=== PATIENT | male | born 1940 | race Caucasian/White ===

== ENCOUNTER 2024-12-29 09:07 | Inpatient (IN) | payer OTHER ==
[~2024-12-29] VITALS: Ht 165.1 cm; Wt 109.9 kg
[2024-12-29] VITALS (13 sets, daily range): BP systolic 106–132; BP diastolic 35–58; PULSE 70–109; RESP 14–21; TEMP 98.2–98.9; O2SAT 92–96
--- NOTE | 2024-12-29 10:20 | ED.PDOC ---
SOB-HPI HPI Comments 84 y/o M, BIBA, with PMHx of COPD, HTN, and DM II presents to the ED for CC of shortness of breath. EMS reports, patient is coming from home where he complains of shortness of breath with associated non-productive cough onset, last night (12/28/24). EMS states, patient is on 2L O2 via NC at home PRN. Upon arrival to ED, patient complains of additional symptoms of bilateral leg swelling; endorses currently being on blood thinners. Patient denies chest pain, palpitations, fever, chills, weakness, or fatigue. No others symptoms or modifying factors present at this time. Chief Complaint: Shortness of Breath Time Seen by MD: 09:50 Primary Care Provider: CHESTER Amador notes: Nurses Notes, Medications, Allergies Information Source: Patient Mode of Arrival: EMS Severity: Moderate Timing: Hours Duration: Since onset Context: At Rest PE Risk Factors: None History of: COPD Prehospital treatment: None Modifying Factors: Nothing Associated Signs and Symptoms: Cough, Leg Swelling If cough with SOB: Non-Productive Past Medical History PAST MEDICAL HISTORY: COPD, DM, HTN Surgical History: Denies all surgeries Family History Family History: Unknown Social History Smoker: Cigarettes Alcohol: Denies ETOH Use Drugs: Denies Drug Use Lives In: Home Constitutional: denies: chills, diaphoresis, fatigue, fever, malaise, sweats, weakness, others EENTM: denies: blurred vision, double vision, ear bleeding, ear discharge, ear drainage, ear pain, ear ringing, eye pain, eye redness, hearing loss, mouth pain, mouth swelling, nasal discharge, nose bleeding, nose congestion, nose pain, photophobia, tearing, throat pain, throat swelling, voice changes, others Respiratory: reports: cough, shortness of breath; denies: hemoptysis, orthopnea, SOB at rest, SOB with excertion, stridor, wheezing, others Cardiovascular: denies: chest pain, dizzy spells, diaphoresis, Dyspnea on exertion, edema, irregular heart beat, left arm pain, lightheadedness, palpitations, PND, syncope, others Gastrointestinal: denies: abdomen distended, abdominal pain, blood streaked bowels, constipated, diarrhea, dysphagia, difficulty swallowing, hematemesis, melena, nausea, poor appetite, poor fluid intake, rectal bleeding, rectal pain, vomiting, others Genitourinary: denies: burning, dysuria, flank pain, frequency, hematuria, incontinence, penile discharge, penile sore, pain, testicle pain, testicle swelling, urgency, others Neurological: denies: dizziness, fainting, headache, left sided numbness, left sided weakness, numbness, paresthesia, pre-existing deficit, right sided numbness, right sided weakness, seizure, speech problems, tingling, tremors, weakness, others Musculoskeletal: reports: others (BILATERAL LEG SWELLING); denies: back pain, gout, joint pain, joint swelling, muscle pain, muscle stiffness, neck pain Integumetry: denies: bruises, change in color, change in hair/nails, dryness, laceration, lesions, lumps, rash, wounds, others Allergic/Immunocompromised: denies: Difficulty Healing, Frequent Infections, Hives, Itching, others Hematologic/Lymphatic: denies: anemia, blood clots, easy bleeding, easy bruising, swollen glands, others Endocrine: denies: excessive hunger, excessive sweating, excessive thirst, excessive urination, flushing, intolerance to cold, intolerance to heat, unexplained weight gain, unexplained weight loss, others Psychiatric: denies: anxiety, bipolar disorder, depression, hopeless, panic disorder, schizophrenia, sleepless, suicidal, others All Other Systems: Reviewed and Negative Physical Exam General Appearance: Moderate Distress, Obese HEENT: Normal ENT Inspection, PERRL/EOMI Neck: Full Range of Motion, Non-Tender, Normal, Normal Inspection Respiratory: Chest Non-Tender, Lungs Clear, No Accessory Muscle Use, No Respiratory Distress, Normal Breath Sounds Cardiovascular: No Edema, No JVD, No Murmur, No Gallop, Normal Peripheral Pulses, Regular Rate/Rhythm Breast Exam: Deferred Gastrointestinal: No Organomegaly, Non Tender, No Pulsatile Mass, Normal Bowel Sounds, Soft, Other (Morbid obesity) Genitalia: Deferred Pelvic: Deferred Rectal: Deferred Extremities: Decreased range of motion, Inflammation, Leg edema, Pedal edema, Swelling, Tender Neurologic: Alert, 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 Was a procedure done?: No Differential Dx Differential Diagnosis: CHF, COPD, Hypertension, Hyponatremia, Myocardial infarction, Pneumonia, URI X-Ray, Labs, Meds, VS Vital Signs Date Time Temp Pulse Resp B/P (MAP) Pulse Ox O2 Delivery O2 Flow Rate FiO2 12/29/24 11:05 70 16 92 Nasal Cannula* 4 36 12/29/24 10:43 98.0 92 17 107/80 (89) 93 98.0 12/29/24 10:43 92 17 93 Nasal Cannula 2.0 12/29/24 09:15 93 Nasal Cannula* 2 28 12/29/24 09:15 98.0 98 20 105/43 (63) 93 98.0 12/29/24 09:15 94 Lab Test 12/29/24 10:50 Range/Units White Blood Count 11.5 H 4.4-10.8 10^3/uL Red Blood Count 2.41 L 4.5-5.90 10^6/uL Hemoglobin 6.6 *L 13.5-17.5 g/dL Hematocrit 20.8 L 41.0-53.0 % Mean Corpuscular Volume 86.3 80.0-100.0 fL Mean Corpuscular Hemoglobin 27.2 L 28.0-32.0 pg Mean Corpuscular Hemoglobin Concent 31.6 L 32.0-36.0 g/dL Red Cell Distribution Width 15.8 H 11.8-14.3 % Platelet Count 312 140-450 10^3/uL Mean Platelet Volume 7.5 6.9-10.8 fL Neutrophils (%) (Auto) 87.1 H 37.0-80.0 % Lymphocytes (%) (Auto) 5.1 L 10.0-50.0 % Monocytes (%) (Auto) 6.3 0.0-12.0 % Eosinophils (%) (Auto) 0.2 0.0-7.0 % Basophils (%) (Auto) 1.3 0.0-2.0 % Neutrophils # (Auto) 10.1 H 1.6-8.6 10 ^3/uL Lymphocytes # (Auto) 0.6 0.4-5.4 10 ^3/uL Monocytes # (Auto) 0.7 0-1.3 10 ^3/uL Eosinophils # (Auto) 0 0-0.8 10 ^3/uL Basophils # (Auto) 0.1 0-0.2 10 ^3/uL Nucleated Red Blood Cells 0.1 % Sodium Level 143 136-145 mmol/L Potassium Level 3.6 3.5-5.1 mmol/L Chloride Level 104 98-107 mmol/L Carbon Dioxide Level 31 20-31 mmol/L Anion Gap 8 5-15 Blood Urea Nitrogen 69 H 9-23 mg/dL Creatinine 1.75 H 0.700-1.30 mg/dL Glomerular Filtration Rate Calc 38 >90 mL/min BUN/Creatinine Ratio 39.4 H 10.0-20.0 Serum Glucose 153 H 74-106 mg/dL Calcium Level 9.7 8.7-10.4 mg/dL Magnesium Level 1.9 1.6-2.6 mg/dL Total Bilirubin 0.2 0.2-1.0 mg/dL Aspartate Amino Transferase (AST) 12 L 13-40 U/L Alanine Aminotransferase (ALT) 11 7-40 U/L Alkaline Phosphatase 79 46-116 U/L Troponin I High Sensitivity 32 </=54 ng/L B-Type Natriuretic Peptide 85.03 0-100 pg/mL Total Protein 6.5 5.7-8.2 g/dL Albumin 4.3 3.2-4.8 g/dL Thyroid Stimulating Hormone (TSH) Pending Current Medications Medications (Trade) Dose Ordered Sig/Milad Route Start Time Stop Time Status Last Admin Sodium Chloride 1,000 ml @ 150 mls/hr Q6H40M ONCE IV 12/29/24 10:45 12/29/24 17:24 12/29/24 10:48 [place] [id number] Ph: [phone] DIAGNOSTIC IMAGING Diagnostic Imaging Report : [id number] Signed PATIENT: JORDAN CASTRO ACCT: [id number] UNIT: [id number] : 1940 LOC: ER ROOM / BED: / AGE / SEX: 84 / M ADM STATUS: REG ER SERVICE 1032 ORDERING PHYSICIAN: JEANNIE BARNEY MD PROCEDURE(s): CXR2 - CHEST TWO VIEWS ROUTINE REASON: sob ORDER NUMBER(s): [id number], ACCESSION NUMBER(s): [id number] Procedure: XY CHEST TWO VIEWS ROUTINE 12/29/2024 10:35 AM Indication: sob Comparison: None TECHNIQUE: XY CHEST TWO VIEWS ROUTINE FINDINGS: Medical devices: None. Cardiomediastinal: The heart is normal in size. Pulmonary vasculature is within normal limits. Atherosclerotic calcification of the aortic arch noted. Lungs: No lobar consolidation. Bronchial wall thickening noted in the bilateral mid and lower lung zones. The costophrenic angles are clear. No pneumothorax. Bones/soft tissues: No acute abnormality is noted. IMPRESSION: 1. Findings compatible bronchitis. No lobar consolidation. 2. Hyperaerated lungs suggestive of COPD. ATED BY: JENI SÁNCHEZ MD DICTATED DATE/TIME: 12/29/241127 SIGNED BY: JENI SÁNCHEZ MD SIGNED DATE/TIME: 12/29/241127 CC: X-Ray, Labs, Meds, VS Comment Course in the emergency department eventful patient came in complaining of shortness of breath The chest x-ray shows COPD with a mild exacerbation EKG shows normal sinus rhythm at 94 with a right bundle-branch block and prolonged good T interval [place] 19337 with 87% neutrophils H&H 6.6 and 20.8 and a blood sugar of 153 and a GFR of 38 BNP 85 urine pending Magnesium 1.9 Troponin 32 Patient will be transfused and admitted for further care Time of 1ST Reevaluation: 10:20 Reevaluation 1ST: Unchanged Time of 2ND Reevaluation: 12:40 Reevaluation 2ND: Unchanged Patient Education/Counseling: Diagnosis, Treatment, Prognosis Family Education/Counseling: Diagnosis, Treatment, Prognosis, No Family Present Departure 1 Departure Time of Disposition: 12:52 Impression: Primary Impression: Shortness of breath Additional Impressions: Anemia requiring transfusions CKD (chronic kidney disease) stage 3, GFR 30-59 ml/min Qualified Codes: N18.32 - Chronic kidney disease, stage 3b Diabetic nephropathy Qualified Codes: E11.21 - Type 2 diabetes mellitus with diabetic nephropathy Disposition: ADMITTED INPATIENT Condition: Serious Critical Care Note Critical Care Time?: No Stability Stability form required: Yes Unstable for transfer: Telemetry monitoring (Telemetry monitoring required), Requires medication (Requires Med for stabilization) Heart Score Heart Score: Heart Score Response (Comments) Value History N/A 0 EKG Repolarization Disturb 1 Age >65 2 Risk Factors >3 or Hx ASHD 2 Troponin Normal limit 0 Total 5 I personally scribed for JEANNIE BARNEY MD ([email or web address]) on 12/29/24 at 10:20. Electronically submitted by Samantha Carreon ([employer]). I personally scribed for JEANNIE BARNEY MD ([email or web address]) on 12/29/24 at 10:26. Electronically submitted by Samantha Carreon ([employer]). I personally scribed for JEANNIE BARNEY MD ([email or web address]) on 12/29/24 at 11:33. Electronically submitted by Samantha Carreon ([employer]). JEANNIE BARNEY MD Dec 29, 2024 10:20
[2024-12-29] MEDS: SODIUM CHLORIDE 0.9% 1,000 ML IV ONE (10:48)
[2024-12-29 11:10] LABS: Basophils # (auto) 0.1 10 ^3/uL (0-0.2); Eosinophils # (auto) 0 10 ^3/uL (0-0.8); Lymphocytes # (auto) 0.6 10 ^3/uL (0.4-5.4); Monocytes # (auto) 0.7 10 ^3/uL (0-1.3); Nucleated Red Blood Cells % 0.1 %
[2024-12-29 11:12] LABS: Basophils % (auto) 1.3 % (0.0-2.0); Eosinophils % (auto) 0.2 % (0.0-7.0); Hematocrit 20.8 % (41.0-53.0); Lymphocytes % (auto) 5.1 % (10.0-50.0); Mean Corpuscular Hemoglobin 27.2 pg (28.0-32.0); Mean Corpuscular Hgb Conc. 31.6 g/dL (32.0-36.0); Mean Corpuscular Volume 86.3 fL (80.0-100.0); Monocytes % (auto) 6.3 % (0.0-12.0); Neutrophils # (auto) 10.1 10 ^3/uL (1.6-8.6); Neutrophils % (auto) 87.1 % (37.0-80.0); Platelet Count (auto) 312 10^3/uL (140-450); Red Blood Cells 2.41 10^6/uL (4.5-5.90); Red Cell Distribution Width 15.8 % (11.8-14.3); White Blood Cell 11.5 10^3/uL (4.4-10.8)
[2024-12-29 11:15] LABS: Hemoglobin 6.6 g/dL (13.5-17.5)
[2024-12-29 11:21] LABS: Alanine Aminotransferase 11 U/L (7-40); Albumin 4.3 g/dL (3.2-4.8); Alkaline Phosphatase 79 U/L (46-116); Anion Gap 8 (5-15); Aspartate Aminotransferase 12 U/L (13-40); BUN/Creatinine Ratio 39.4 (10.0-20.0); Blood Urea Nitrogen 69 mg/dL (9-23); Calcium 9.7 mg/dL (8.7-10.4); Carbon Dioxide 31 mmol/L (20-31); Chloride 104 mmol/L (98-107); Glucose 153 mg/dL (74-106); Magnesium 1.9 mg/dL (1.6-2.6); Potassium 3.6 mmol/L (3.5-5.1); Sodium 143 mmol/L (136-145); Total Protein 6.5 g/dL (5.7-8.2)
[2024-12-29 11:22] LABS: Bilirubin, Total 0.2 mg/dL (0.2-1.0)
--- NOTE | 2024-12-29 11:30 | DVH ---
Procedure: XY CHEST TWO VIEWS ROUTINE 12/29/2024 10:35 AM Indication: sob Comparison: None TECHNIQUE: XY CHEST TWO VIEWS ROUTINE FINDINGS: Medical devices: None. Cardiomediastinal: The heart is normal in size. Pulmonary vasculature is within normal limits. Athero sclerotic calcification of the aortic arch noted. Lungs: No lobar consolidation. Bronchial wall thickening noted in the bilateral mid and lower lung zo saleem. The costophrenic angles are clear. No pneumothorax. Bones/soft tissues: No acute abnormality is noted. IMPRESSION: 1. Findings compatible bronchitis. No lobar consolidation. 2. Hyperaerated lungs suggestive of COPD.
[2024-12-29] MEDS ORDERED: DEXTROSE (50%) 50ML SYRG IV PRN (16:00)
[2024-12-29] MEDS ORDERED: MORPHINE SULFATE INJ 2 MG/ml SYRG IV PRN (16:00)
[2024-12-29] MEDS ORDERED: ACETAMINOPHEN 325 MG TAB PO PRN (16:00)
[2024-12-29] MEDS ORDERED: NITROGLYCERIN 0.4 MG SL TAB SL PRN (16:00)
[2024-12-29] MEDS ORDERED: ONDANSETRON HCL 4 MG/2 ML VIAL IV PRN (16:00)
[2024-12-29] MEDS ORDERED: HYDROcodone-ACET 5/325MG TAB PO PRN (16:00)
--- NOTE | 2024-12-29 16:23 | DVHHP2 ---
History of Present Illness Reason for Visit: Anemia requiring transfusions History of Present Illness The patient is a 84-year-old male with past medical history of COPD, DM, and hypertension who presented to [facility] ED with complaint of shortness of breaths. Patient reports symptoms progressively get worse with bilateral leg swelling, nonproductive cough, weakness, increased work of breathing, getting worse today that prompted this visit. Patient was seen and evaluated in the ED, laboratory data shows WBC 11.5, hemoglobin 6.6, hematocrit 20.8, platelets 312, sodium 143, potassium 3.6, BUN 69, creatinine 1.75, glucose 153, BNP 83.03, troponin 32, TSH 0.54. Chest x-ray finding compatible bronchitis, hyper-aerated lungs suggestive of COPD, no lobar consolidation. Patient was given 2 units of PRBC. On my assessment, patient denied chest pain, palpitations, no headache, dizziness, no diaphoresis, currently on oxygen, no nausea, no vomiting, no fever, no chills. Patient was admitted further evaluation and medical management. Past Medical History COPD, DM, HTN Past Surgical History Denies all surgeries Family History Reviewed, noncontributory to the management of this case. Past Social History The patient lives at home, smokes cigarettes, denies alcohol or illicit drugs abuse. Review of Systems Constitutional: Yes: Weakness; No: Fever, Chills, Sweats, Malaise, Other Eyes: No: Pain, Vision change, Conjunctivae inflammation, Eyelid inflammation, Other, Redness ENT: No: Ear pain, Ear discharge, Nose pain, Nose discharge, Nose congestion, Mouth pain, Mouth swelling, Throat pain, Throat swelling, Other Respiratory: Cough, Shortness of breath; No: Dry, SOB with excertion, Wheezing, Hemoptysis, Pleuritic Pain, Sputum, Wheezing, Other Cardiovascular: No: Chest Pain, Palpitations, Orthopnea, Paroxysmal Noc. Dyspnea, Edema, Lt Headedness, Other Gastrointestinal: No: Nausea, Vomiting, Abdominal Pain, Diarrhea, Constipation, Melena, Hematochezia, Other Genitourinary: No Dysuria, No Frequency, No Incontinence, No Hematuria, No Retention, No Other Musculoskeletal: other (Bilateral lower extremity swelling); No: neck pain, shoulder pain, arm pain, back pain, hand pain, leg pain, foot pain Skin: No: Rash, Lesions, Jaundice, Bruising, Other Neurological: No: Weakness, Numbness, Incoordination, Change in speech, Confusion, Seizures, Other Allergies: Coded Allergies: Penicillins (Verified Allergy, Severe, 12/29/24) Exam Vital Signs Vital Signs Date Time Temp Pulse Resp B/P (MAP) Pulse Ox O2 Delivery O2 Flow Rate FiO2 12/29/24 15:45 98.4 93 20 115/49 98.4 12/29/24 14:00 96 12/29/24 11:05 Nasal Cannula* 4 36 General Appearance: Alert, Oriented X3, Cooperative, No acute distress HEENT: Atraumatic, PERRLA, EOMI, Mucous membr. moist/pink Respiratory: Normal air movement, Other (Shortness of breaths) Cardiovascular: Regular rate, Normal S1, Normal S2, No murmurs Abdominal: Normal bowel sounds, Soft, No tenderness, No hepatospenomegaly, No masses Extremities: No clubbing, No cyanosis, No edema, Normal pulses, Other (Lower extremity swelling) Skin: No rashes, No breakdown, No significant lesion Neuro: Normal speech, Normal tone, Sensation intact, Cranial nerves 3-12 NL, Reflexes 2+, Other (Generalized weakness) Psych/Mental Status: Mental status NL Labs/Xrays Labs Test 12/29/24 10:50 Range/Units White Blood Count 11.5 H 4.4-10.8 10^3/uL Red Blood Count 2.41 L 4.5-5.90 10^6/uL Hemoglobin 6.6 *L 13.5-17.5 g/dL Hematocrit 20.8 L 41.0-53.0 % Mean Corpuscular Volume 86.3 80.0-100.0 fL Mean Corpuscular Hemoglobin 27.2 L 28.0-32.0 pg Mean Corpuscular Hemoglobin Concent 31.6 L 32.0-36.0 g/dL Red Cell Distribution Width 15.8 H 11.8-14.3 % Platelet Count 312 140-450 10^3/uL Mean Platelet Volume 7.5 6.9-10.8 fL Neutrophils (%) (Auto) 87.1 H 37.0-80.0 % Lymphocytes (%) (Auto) 5.1 L 10.0-50.0 % Monocytes (%) (Auto) 6.3 0.0-12.0 % Eosinophils (%) (Auto) 0.2 0.0-7.0 % Basophils (%) (Auto) 1.3 0.0-2.0 % Neutrophils # (Auto) 10.1 H 1.6-8.6 10 ^3/uL Lymphocytes # (Auto) 0.6 0.4-5.4 10 ^3/uL Monocytes # (Auto) 0.7 0-1.3 10 ^3/uL Eosinophils # (Auto) 0 0-0.8 10 ^3/uL Basophils # (Auto) 0.1 0-0.2 10 ^3/uL Nucleated Red Blood Cells 0.1 % Sodium Level 143 136-145 mmol/L Potassium Level 3.6 3.5-5.1 mmol/L Chloride Level 104 98-107 mmol/L Carbon Dioxide Level 31 20-31 mmol/L Anion Gap 8 5-15 Blood Urea Nitrogen 69 H 9-23 mg/dL Creatinine 1.75 H 0.700-1.30 mg/dL Glomerular Filtration Rate Calc 38 >90 mL/min BUN/Creatinine Ratio 39.4 H 10.0-20.0 Serum Glucose 153 H 74-106 mg/dL Calcium Level 9.7 8.7-10.4 mg/dL Magnesium Level 1.9 1.6-2.6 mg/dL Total Bilirubin 0.2 0.2-1.0 mg/dL Aspartate Amino Transferase (AST) 12 L 13-40 U/L Alanine Aminotransferase (ALT) 11 7-40 U/L Alkaline Phosphatase 79 46-116 U/L Troponin I High Sensitivity 32 </=54 ng/L B-Type Natriuretic Peptide 85.03 0-100 pg/mL Total Protein 6.5 5.7-8.2 g/dL Albumin 4.3 3.2-4.8 g/dL Thyroid Stimulating Hormone (TSH) 0.54 L 0.55-4.78 uIU/mL PATIENT: JORDAN CASTRO ACCT: [id number] UNIT: [id number] : 1940 LOC: ER ROOM / BED: / AGE / SEX: 84 / M ADM STATUS: REG ER SERVICE 1032 ORDERING PHYSICIAN: JEANNIE BARNEY MD PROCEDURE(s): CXR2 - CHEST TWO VIEWS ROUTINE REASON: sob ORDER NUMBER(s): [id number], ACCESSION NUMBER(s): [id number] Procedure: XY CHEST TWO VIEWS ROUTINE 12/29/2024 10:35 AM Indication: sob Comparison: None TECHNIQUE: XY CHEST TWO VIEWS ROUTINE FINDINGS: Medical devices: None. Cardiomediastinal: The heart is normal in size. Pulmonary vasculature is within normal limits. Atherosclerotic calcification of the aortic arch noted. Lungs: No lobar consolidation. Bronchial wall thickening noted in the bilateral mid and lower lung zones. The costophrenic angles are clear. No pneumothorax. Bones/soft tissues: No acute abnormality is noted. IMPRESSION: 1. Findings compatible bronchitis. No lobar consolidation. 2. Hyperaerated lungs suggestive of COPD. Assessment/Plan Assessment/Plan Anemia requiring transfusions COPD exacerbation Generalized weakness CKD (chronic kidney disease) stage 3, GFR 30-59 ml/min Chronic kidney disease, stage 3b Diabetic nephropathy Type 2 diabetes mellitus with diabetic nephropathy Plan 1. Admit to telemetry unit 2. Breathing treatment 3. Pain control management 4. Management of fluids and electrolytes 5. Consultation for Nephrology 6. Diagnostic tests chest x-ray 7. DVT prophylaxis on aspirin 8. Repeat labs CBC, CMP in a.m. 9. Continue with current medical management; transfused 2 units of PRBC 10. Treatment plan discussed with patient and RN. Patient verbalized understanding. Plan discussed with: Patient, Other (RN) My Orders Orders - HUNG MCNALLY DNP Procedure Category Date Status Time Consistent DIET 12/29/24 Verified Carb(Ccho)Diabetes Dinner *Dr. [facility] CONS 12/29/24 Verified -[place] 15:55 Terazosin Hcl (Hytrin) PHA 12/29/24 Verified 22:00 Levothyroxine Tablet PHA 12/30/24 Verified (Synthroid Tablet) 06:00 Hydrochlorothiazide PHA 12/30/24 Verified Tablet (Hydrochlorot 10:00 Glucose Blood PHA 12/29/24 Verified (Accu-Chek Comfort 17:00 Mild Sliding Scale PHA 12/29/24 Verified 17:00 Dextrose 50% Syringe PHA 12/29/24 Verified 16:00 Admit ADMIT 12/29/24 Verified 15:55 Allergies ALISON 12/29/24 Verified 15:55 Code Status CODE 12/29/24 Verified 15:55 Sodium Chloride Lock PHA 12/29/24 Verified (Saline Lock Ns) 22:00 Oxygen Per Hour RT 12/29/24 Verified 15:55 Hydrocodone-Acet [facility] 12/29/24 Verified 5/325mg Tab ([place] 16:00 Ondansetron Hcl [facility] 12/29/24 Verified (Zofran) 16:00 Docusate Sodium [facility] 12/29/24 Verified Capsule (Colace 16:00 Fall Risk Precautions [facility] 12/29/[address] 15:55 Complete Blood Count LAB 12/30/24 Verified 04:00 Comprehensive LAB 12/30/24 Verified Metabolic Panel 04:00 Condition: Serious [facility] 12/29/24 Verified 15:55 Acetaminophen Tablet [facility] 12/29/24 Verified (Tylenol Tablet) 16:00 Bedrest With Bathroom [facility] 12/29/24 Verified Privileg 15:55 Sequential [facility] 12/29/24 Verified Compression Device Nitroglycerin [facility] 12/29/24 Verified Sublingual (Ntrostat 16:00 Morphine Sulfate [facility] 12/29/24 Verified Injection 16:00 Stat Ekg For Chest [facility] 12/29/24 Verified Pain 15:55 Notify Md Of Changes [facility] 12/29/24 Verified From Base 15:55 Manager Diversity For [facility] 12/29/24 Verified 24 Hours 15:55 Emergency Dysrhythmia [facility] 12/29/24 Verified Protocol 15:55 Rhythm Strips Once [facility] 12/29/24 Verified Every Shift 15:55 Oxygen By Nasal RT 12/29/24 Verified Cannula 15:55 Problem List: (1) Anemia requiring transfusions (2) Generalized weakness (3) COPD exacerbation (4) Diabetic nephropathy (5) CKD (chronic kidney disease) stage 3, GFR 30-59 ml/min (6) Type 2 diabetes mellitus with diabetic nephropathy Date of Service: Dec 29, 2024 Billing Provider: HUNG MCNALLY DNP Common Visit Codes: 98402-[id number] INP/OBS CARE (HIGH) HUNG MCNALLY DNP Dec 29, 2024 16:23
[2024-12-29] MEDS: InsuLIN REG 1unit/0.01ml Soln (100units/ml) SC SCH (17:00)
[2024-12-29] MEDS: ACCU-CHEK COMFORT CURVE STRIP VI SCH (17:09)
[2024-12-29 18:21] LABS: Urine Bacteria FEW /hpf (None Seen); Urine Blood Negative /uL (Negative); Urine Clarity Clear (Clear); Urine Color Light-Yellow (Yellow); Urine Protein, UAD Negative (Negative); Urine Specific Gravity 1.015 (1.001-1.035); Urine Squamous Epithelial Cell FEW /hpf (<5); Urine Urobilinogen Normal (Negative); Urine WBC 3 /HPF (0-3); Urine pH 5.5 (5.0-9.0)
[2024-12-29] MEDS: SODIUM CHLOR 0.9% PF (SALINE LOCK) 10ML VIAL/SYR IV SCH (21:44)
[2024-12-29] MEDS: ATORVASTATIN 20 MG TAB PO SCH (21:45)
[2024-12-29] MEDS: TERAZOSIN HCL 5 MG CAP PO SCH (21:46)
[2024-12-30] VITALS (11 sets, daily range): BP systolic 108–127; BP diastolic 39–68; PULSE 82–95; RESP 16–21; TEMP 97.4–98.6; O2SAT 94–100
[2024-12-30] MEDS: LEVOTHYROXINE SODIUM 25 MCG TAB PO SCH (06:09)
[2024-12-30 07:58] LABS: Eosinophils # (auto) 0.3 10 ^3/uL (0-0.8); Eosinophils % (auto) 2.9 % (0.0-7.0); Hemoglobin 7.8 g/dL (13.5-17.5); Monocytes # (auto) 0.8 10 ^3/uL (0-1.3); Nucleated Red Blood Cells % 0.1 %; Platelet Count (auto) 265 10^3/uL (140-450); White Blood Cell 8.8 10^3/uL (4.4-10.8)
[2024-12-30 08:01] LABS: Basophils # (auto) 0.1 10 ^3/uL (0-0.2); Basophils % (auto) 0.8 % (0.0-2.0); Hematocrit 23.8 % (41.0-53.0); Lymphocytes # (auto) 0.9 10 ^3/uL (0.4-5.4); Mean Corpuscular Hemoglobin 28.3 pg (28.0-32.0); Mean Corpuscular Hgb Conc. 32.9 g/dL (32.0-36.0); Monocytes % (auto) 9.2 % (0.0-12.0); Neutrophils # (auto) 6.8 10 ^3/uL (1.6-8.6); Neutrophils % (auto) 77.1 % (37.0-80.0); Red Blood Cells 2.77 10^6/uL (4.5-5.90); Red Cell Distribution Width 15.8 % (11.8-14.3)
[2024-12-30 08:15] LABS: Alanine Aminotransferase 16 U/L (7-40); Alkaline Phosphatase 78 U/L (46-116); Anion Gap 8 (5-15); Bilirubin, Total 0.3 mg/dL (0.2-1.0); Calcium 9.5 mg/dL (8.7-10.4); Carbon Dioxide 30 mmol/L (20-31); Total Protein 6.1 g/dL (5.7-8.2)
[2024-12-30 08:17] LABS: Aspartate Aminotransferase 11 U/L (13-40); Blood Urea Nitrogen 53 mg/dL (9-23); Chloride 107 mmol/L (98-107); Glucose 121 mg/dL (74-106); Potassium 3.5 mmol/L (3.5-5.1); Sodium 145 mmol/L (136-145)
[2024-12-30] MEDS: hydroCHLOROthiazide 25 MG TAB PO SCH (09:02)
[2024-12-30] MEDS: ASPirin 81 mg TAB PO SCH (09:03)
--- NOTE | 2024-12-30 11:05 | DVH ---
INDICATION: ckd TECHNIQUE: Multiple real-time sonographic images of the kidneys and bladder were obtained. COMPARISON: None FINDINGS: The right kidney measures 11 cm in length, which is normal in size. There is normal echogen icity of the right kidney. No hydronephrosis. The left kidney measures 12 cm in length, which is normal in size. There is normal echogenicity of th e left kidney. No hydronephrosis. No large intraluminal masses are seen in the bladder. Prior to voiding the bladder volume measures vo lume 194 cc. Bilateral renal cysts measuring 4 cm in the right upper pole and 2 cm in the left upper IMPRESSION: 1. Normal sonographic appearance of the kidneys. No hydronephrosis.
[2024-12-30 12:25] LABS: % Iron Saturation 6.4 % (20-55)
--- NOTE | 2024-12-30 13:02 | ECG ---
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
[2024-12-30] MEDS: FUROSEMIDE 40 MG/4 ML VIAL IV ONE (13:55)
[2024-12-30] MEDS: CHOLECALCIFEROL (VITD3) 1,000UNIT=25mCg TAB PO ONE (13:55)
--- NOTE | 2024-12-30 14:13 | DVH ---
Bilateral lower extremity venous duplex Clinical History: RO DVT, edema Comparison: None Findings: Duplex Doppler evaluation of the deep venous systems of both lower extremities from the common femora l veins to the popliteal veins including color Doppler and spectral/pulsed waveform analysis was perf ormed. RIGHT SIDE: The common femoral vein demonstrates appropriate compressibility and waveform variability. There is compressibility/patency of the great saphenous vein at the proximal thigh. The femoral vein demonstrates appropriate compressibility and waveform variability. The deep femoral vein demonstrates appropriate compressibility and waveform variability. The popliteal vein demonstrates appropriate compressibility and waveform variability. There is normal compressibility at the tibioperoneal trunk. LEFT SIDE: The common femoral vein demonstrates appropriate compressibility and waveform variability. There is compressibility/patency of the great saphenous vein at the proximal thigh. The femoral vein demonstrates appropriate compressibility and waveform variability. The deep femoral vein demonstrates appropriate compressibility and waveform variability. The popliteal vein demonstrates appropriate compressibility and waveform variability. There is normal compressibility at the tibioperoneal trunk. IMPRESSION: No right or left femoropopliteal venous thrombosis. If clinical concern/symptoms persist or worsen, short-interval follow-up study is suggested. END IMPRESSION:
--- NOTE | 2024-12-30 15:00 | DVHCONRES ---
Date Seen: December 30, 2024 Resident Creating Document: LESTER MAJOR RESIDENT Referring Physician RODRICK Connell Reason for Consultation shabbir History of Present Illness 84-year-old male patient with past medical history of COPD, nicotine dependency) he smoked 1 pack of cigarettes a day), type 2 diabetes, hypertension who presents to emergency department with a chief complaint of shortness of breaths and chest pain for the past 2 days before admission. In the emergency department the patient's hemoglobin was found to be severely decreased after which he received 2 PRBC. Nephrology was consulted for an episode of acute kidney injury likely on chronic kidney disease there is no previous hospitalization history with current creatinine , BUN and GFR levels are improving. Patient was examined at bedside, patient is alert and oriented x3 he is able to handle a conversation and follow commands, he is currently eating and tolerating well Past Medical History Nicotine dependency Type 2 diabetes Hypertension Unknown stage CKD Morbid obesity COPD Family History: FH: cancer G8 FATHER FH: emphysema G8 MOTHER Allergies: Coded Allergies: Penicillins (Verified Allergy, Severe, 12/29/24) Current Medications Current Medications Medications (Trade) Dose Ordered Sig/Milad Route PRN Reason Start Time Stop Time Status Last Admin Terazosin HCl (Hytrin) 10 mg HS PO 12/29/24 22:00 12/29/24 21:46 Levothyroxine Sodium (Synthroid Tablet) 25 mcg QAM@0600 PO 12/30/24 06:00 12/30/24 06:09 Hydrochlorothiazide (hydroCHLOROthiazide TABLET) 12.5 mg DAILY PO 12/30/24 10:00 12/30/24 11:44 DC 12/30/24 09:02 Diagnostic Test (Pha) (Accu-Chek Comfort Curve T) 1 strip ACHS 12/29/24 17:00 12/30/24 11:02 Insulin Human Regular (InsuLIN R) ACHS SC 12/29/24 17:00 12/30/24 11:34 Dextrose 50 ml UD PRN IV Blood Sugar LESS THAN 60 12/29/24 16:00 Sodium Chloride (Saline Lock Ns) 10 ml Q8HR IV 12/29/24 22:00 12/30/24 14:02 Acetaminophen/ Hydrocodone Bitart ([place] 5/325MG Tab) 1 tab Q4HP PRN PO MODERATE PAIN (4-6 PAIN SCALE) 12/29/24 16:00 Ondansetron HCl (Zofran) 4 mg Q4HP PRN IV NAUSEA / VOMITING 12/29/24 16:00 Docusate Sodium (Colace Capsule) 100 mg BIDPRN PRN PO FOR CONSTIPATION 12/29/24 16:00 Acetaminophen (Tylenol Tablet) 650 mg Q6HP PRN PO PAIN SCALE 1-3 OR TEMP>100.4 12/29/24 16:00 Nitroglycerin (Ntrostat Sublingual) 0.4 mg Q5MINP PRN SL FOR CHEST PAIN 12/29/24 16:00 Morphine Sulfate 2 mg Q30M PRN IV FOR CHEST PAIN 12/29/24 16:00 Atorvastatin Calcium (Lipitor) 20 mg HS PO 12/29/24 22:00 12/29/24 21:45 Aspirin 81 mg DAILY PO 12/30/24 10:00 12/30/24 09:03 Furosemide (Lasix Injection) 40 mg DAILY IV 12/31/24 10:00 Cholecalciferol (Vitamin D3 Tablet) 4,000 unit DAILY PO 12/31/24 10:00 Review of Systems Constitutional: No: Fever, Chills, Sweats, Weakness, Malaise, Other Eyes: No: Pain, Vision change, Conjunctivae inflammation, Eyelid inflammation, Other, Redness ENT: No: Ear pain, Ear discharge, Nose pain, Nose discharge, Nose congestion, Mouth pain, Mouth swelling, Throat pain, Throat swelling, Other Respiratory: Shortness of breath, improving No Wheezing, Hemoptysis, Pleuritic Pain, Sputum, Wheezing, Other Cardiovascular: No: Chest Pain, Palpitations, Orthopnea, Paroxysmal Noc. Dyspnea, Edema, Lt Headedness, Other Gastrointestinal: No: Nausea, Vomiting, Abdominal Pain, Diarrhea, Constipation, Melena, Hematochezia, Other Musculoskeletal: No: other, neck pain, shoulder pain, arm pain, back pain, hand pain, leg pain, foot pain Neurological:; No: Weakness, Numbness, Incoordination, Change in speech, Confusion, Seizures Vital Signs Vital Signs Date Time Temp Pulse Resp B/P (MAP) Pulse Ox O2 Delivery O2 Flow Rate FiO2 12/30/24 13:55 122/45 12/30/24 13:00 97.9 90 19 100 97.9 12/30/24 08:00 Nasal Cannula* 2 28 Physical Exam Examination General Appearance: Morbidly obese, Alert, Oriented X3, Cooperative, No acute distress HEENT: EOMI Respiratory: Wheezing bilateral present Cardiovascular: Regular rate, Normal S1, Normal S2 Abdominal: Normal bowel sounds Extremities: No cyanosis, 3+ edema rt leg >lt leg , Normal pulses, No tenderness/swelling Skin: No rashes, No breakdown Neuro: Normal gait, Normal speech, Strength at 5/5 X4 ext, Normal tone, Sensation intact, Cranial nerves 3-12 NL, Reflexes 2+ Psych/Mental Status: Mental status NL, Mood NL Labs/Diagnostic Data Labs Test 12/30/24 10:55 12/30/24 07:12 12/29/24 17:25 12/29/24 10:50 Range/Units POC Glucose 143 H 70-106 mg/dl White Blood Count 8.8 4.4-10.8 10^3/uL Red Blood Count 2.77 L 4.5-5.90 10^6/uL Hemoglobin 7.8 #L 13.5-17.5 g/dL Hematocrit 23.8 #L 41.0-53.0 % Mean Corpuscular Volume 86.0 80.0-100.0 fL Mean Corpuscular Hemoglobin 28.3 28.0-32.0 pg Mean Corpuscular Hemoglobin Concent 32.9 32.0-36.0 g/dL Red Cell Distribution Width 15.8 H 11.8-14.3 % Platelet Count 265 140-450 10^3/uL Mean Platelet Volume 7.6 6.9-10.8 fL Neutrophils (%) (Auto) 77.1 37.0-80.0 % Lymphocytes (%) (Auto) 10.0 10.0-50.0 % Monocytes (%) (Auto) 9.2 0.0-12.0 % Eosinophils (%) (Auto) 2.9 0.0-7.0 % Basophils (%) (Auto) 0.8 0.0-2.0 % Neutrophils # (Auto) 6.8 1.6-8.6 10 ^3/uL Lymphocytes # (Auto) 0.9 0.4-5.4 10 ^3/uL Monocytes # (Auto) 0.8 0-1.3 10 ^3/uL Eosinophils # (Auto) 0.3 0-0.8 10 ^3/uL Basophils # (Auto) 0.1 0-0.2 10 ^3/uL Nucleated Red Blood Cells 0.1 % Sodium Level 145 136-145 mmol/L Potassium Level 3.5 3.5-5.1 mmol/L Chloride Level 107 98-107 mmol/L Carbon Dioxide Level 30 20-31 mmol/L Anion Gap 8 5-15 Blood Urea Nitrogen 53 #H 9-23 mg/dL Creatinine 1.36 H 0.700-1.30 mg/dL Glomerular Filtration Rate Calc 52 >90 mL/min BUN/Creatinine Ratio 39.0 H 10.0-20.0 Serum Glucose 121 H 74-106 mg/dL Hemoglobin A1c 5.6 <5.7 % A1C Calcium Level 9.5 8.7-10.4 mg/dL Phosphorus Level 4.0 2.4-5.1 mg/dL Iron Level 24 L 65-175 ug/dL Total Iron Binding Capacity 375 250-425 ug/dL Percent Iron Saturation 6.4 L 20-55 % Total Bilirubin 0.3 0.2-1.0 mg/dL Aspartate Amino Transferase (AST) 11 L 13-40 U/L Alanine Aminotransferase (ALT) 16 7-40 U/L Alkaline Phosphatase 78 46-116 U/L Total Protein 6.1 5.7-8.2 g/dL Albumin 4.0 3.2-4.8 g/dL Vitamin D 25-Hydroxy 71.6 30.0-100 ng/mL Free Thyroxine (T4) Calculated 0.84 L 0.89-1.76 ng/dL Parathyroid Hormone (Intact) 93.5 H 18.4-80.1 pg/mL Urine Color Light-yellow Yellow Urine Clarity Clear Clear Urine pH 5.5 5.0-9.0 Urine Specific [place] 1.015 1.001-1.035 Urine Protein Negative Negative Urine Ketones Negative Negative Urine Blood Negative Negative /uL Urine Nitrite Negative Negative Urine Bilirubin Negative Negative Urine Urobilinogen Normal Negative mg/dL Urine Leukocyte Esterase Negative Negative /uL Urine RBC <1 0 - 3 /hpf Urine Microscopic WBC 3 0-3 /HPF Urine Squamous Epithelial Cells Few <5 /hpf Urine Bacteria Few H None Seen /hpf Urine Glucose Normal Normal mg/dL Magnesium Level 1.9 1.6-2.6 mg/dL Troponin I High Sensitivity 32 </=54 ng/L B-Type Natriuretic Peptide 85.03 0-100 pg/mL Thyroid Stimulating Hormone (TSH) 0.54 L 0.55-4.78 uIU/mL Assessment Acute kidney injury on chronic kidney disease likely due to VMN in the setting of severe anemia status post transfusion Severe anemia status post transfusion Secondary hyperparathyroidism Nicotine dependency Morbid obesity COPD exacerbation Rule out DVT Plan Admit the patient to telemetry Status post transfusion 2 PRBC Kidney function improving Continue Lasix 40 IV daily Lower extremity DVT ultrasound Urine studies are pending Monitor BNP and electrolytes replaced as needed. Strict I&O Case discussed with Dr. Junior Code status: Full code Addendum Patient seen and examined, plan discussed with resident. Agree with above, we will follow closely Plan discussed with: Patient LESTER MAJOR December 30, 2024 15:00 ATUL JUNIOR MD December 30, 2024 19:42
--- NOTE | 2024-12-30 16:33 | DVHPN2 ---
Progress Note Date Seen: December 30, 2024 Medical Necessity Reason Pt with a Central, PICC or Fol: No Subjective Patient reports: No new complaints Review of Systems: HEENT:Normal, CVS:Normal, RESPIRATORY:Normal, GI:Normal, :Normal, MSK:Normal, NEURO:Normal Objective vital signs Vital Sign Date Time Temp Pulse Resp B/P (MAP) Pulse Ox O2 Delivery O2 Flow Rate FiO2 12/30/24 13:55 122/45 12/30/24 13:00 97.9 90 19 100 97.9 12/30/24 08:00 Nasal Cannula* 2 28 Total Intake and Output 12/29/24 12/29/24 12/30/24 15:00 23:00 07:00 Intake Total 600 ml 2100 ml 240 ml Output Total 850 ml Balance 600 ml 1250 ml 240 ml medications Current Medications Medications Dose Ordered Sig/Milad Route Start Time Stop Time Status Last Admin Dose Admin Terazosin HCl 10 mg HS PO 12/29/24 22:00 12/29/24 21:46 10 MG Sodium Chloride 10 ml Q8HR IV 12/29/24 22:00 12/30/24 14:02 10 ML Acetaminophen/ Hydrocodone Bitart 1 tab Q4HP PRN PO 12/29/24 16:00 Ondansetron HCl 4 mg Q4HP PRN IV 12/29/24 16:00 Docusate Sodium 100 mg BIDPRN PRN PO 12/29/24 16:00 Acetaminophen 650 mg Q6HP PRN PO 12/29/24 16:00 Nitroglycerin 0.4 mg Q5MINP PRN SL 12/29/24 16:00 Morphine Sulfate 2 mg Q30M PRN IV 12/29/24 16:00 Furosemide 40 mg DAILY IV 12/31/24 10:00 Albuterol 2.5 mg Q6HWA NEB 12/30/24 18:00 UNV Ipratropium [place] 0.5 mg Q6HWA NEB 12/30/24 18:00 UNV Pantoprazole Sodium 40 mg DAILY IV 12/31/24 10:00 UNV Examination: GENERAL:Normal, HEENT:Normal, NECK:Normal, LUNGS:Normal, CVS:Normal, ABDOMEN:Normal, MSK:Normal, MSK:Abnormal (edema++), SKIN:Normal, NEURO:Normal, :Normal laboratory and microbiology Laboratory Tests 12/30/24 07:12 Test 12/30/24 07:12 Range/Units Serum Glucose 121 H 74-106 mg/dL Problem List/Assessment/Plan Problem List/Assessment/Plan #1 anemia: check stool, gi eval, ct abd #2 copd: bronchodilators #3 ? pneumonia: iv zithromax #4 obesity #5 h/o prostate cancer #6 ? acute systolic/diastolic heart failure: lasix iv #7 acute on chronic renal failure ?vasomotor nephropathy #8 htn #9 tobacco abuse: advised to quit, nicotine patch, time spent 11 mins #10 chronic resp failure advance care planning- full code- time spent 19 mins long dw sons- reviewed labs and plan of care Plan discussed with: Patient, Son My Orders My Orders Orders - LIZET BOSCH MD Procedure Category Date Status Time Albuterol Medneb PHA 12/30/24 Logged (Ventolin Medneb) 18:00 Ipratropium Medneb PHA 12/30/24 Logged (Atrovent Medneb) 18:00 Stool Occult Blood LAB 12/30/24 Uncollected 16:11 Echo 2d Mode Cardiac US 12/30/24 Logged DOP 16:11 * Gi Dvh Manager Patient CONS 12/30/24 Transmitted 16:11 Pantoprazole PHA 12/30/24 Logged (Protonix) 16:15 Pantoprazole PHA 12/31/24 Logged (Protonix) 10:00 Basic Metabolic Panel LAB 12/31/24 Verified 06:00 Complete Blood Count LAB 12/31/24 Verified 06:00 Vitamin B12 LAB 12/31/24 Verified 06:00 Folate (Folic Acid) LAB 12/31/24 Verified 06:00 Psa Total+% Free LAB 12/30/24 Logged 16:26 Date of Service: December 30, 2024 Billing Provider: LIZET BOSCH MD Common Visit Codes: 52837-[id number] INP/OBS CARE(HIGH) Secondary Visit Codes: 44987-NUZMU CHNG SMOKING >10MIN, 84612-[id number] CARE PLAN 30 MINUTES CC Plasma Assessment Blood Product Administration S: [id number] LIZET BSOCH MD December 30, 2024 16:33
[2024-12-30] MEDS: IPRATROPIUM BROM 0.5 MG/2.5ML INH SOL NEB SCH (18:01)
[2024-12-30] MEDS: ALBUTEROL SULF 2.5 MG/0.5ML(0.5%) NEB SOLN NEB SCH (18:01)
[2024-12-30] MEDS: PANTOPRAZOLE 40 MG/10 ML VIAL INJ IV ONE (18:02)
[2024-12-30] MEDS: NICOTINE 21MG/24 HR TOPICAL PATCH TD ONE (18:03)
[2024-12-30] MEDS: AZITHROMYCIN 500MG/ 250ML 250 ML IV ONE (18:03)
--- NOTE | 2024-12-30 20:02 | DVH ---
Procedure: CT CHST AB PEL WO CON-NO IV/ORAL 12/30/2024 04:41 PM Indication: COPD, ANEMIA Comparison Study: None Technique: Axial images were obtained and reformatted in coronal and sagittal planes. All CT scans at this medical facility are performed using dose modulation techniques as appropriate to a performed e xam including the following: Automated exposure control was utilized; adjustment of the MA and/or KV according to patient size; and use of iterative reconstruction technique. CT Dose: CTDI volume is 25. 97 mGy. Dose-length product is 1773.25 mGy*cm FINDINGS: Lower neck: Unremarkable. Cardiomediastinal: The heart is normal in size. Coronary artery calcification. Aorta is normal in [place] iber with moderate atherosclerotic calcification noted. No mediastinal lymphadenopathy. Lungs: Moderate centrilobular emphysema with upper lobe predominance. No focal pulmonary opacity. No pleural effusion. No pneumothorax. Hepatobiliary: Multiple hepatic cysts measuring up to 2.8 cm in the right lobe. There is a slight no dularity liver contour which may indicate cirrhosis. No intrahepatic or extrahepatic ductal dilatatio n. Cholelithiasis and moderate gallbladder wall thickening. Spleen: Unremarkable. Pancreas: Unremarkable. Adrenal Glands: Unremarkable. tract: The kidneys are normal in size bilaterally without hydronephrosis or nephrolithiasis. Sever al hepatic cysts are seen measuring up to 5.5 cm. Of the cysts appear septated with mural calcificati on. Some subcentimeter hyper attenuating cysts are noted. The urinary bladder is unremarkable. GI tract: The stomach is grossly normal in appearance. No evidence of small bowel obstruction. Scatte red colonic diverticula are noted without evidence of diverticulitis. The appendix is normal. Lymphatics: No mesenteric, retroperitoneal or periportal lymphadenopathy. 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 Diffuse atherosclerotic calcification of the aortoiliac arteries noted. Pelvic Organs: Unremarkable. Bones/soft tissues: No acute abnormality. A 2 cm subdermal hypodense lesion in the right posterior u pper torso is seen which is likely a sebaceous cyst Other: None. IMPRESSION: 1. Moderate bilateral centrilobular emphysema with upper lobe predominance. 2. No intra-abdominal or intrapelvic hematoma. 3. Scattered colonic diverticula without diverticulitis. 4. Slightly nodular liver contour concerning for cirrhosis. Recommend clinical and biochemical correl ation. 5. Cholelithiasis moderate diffuse gallbladder wall thickening. Recommend clinical and biochemical c orrelation and further evaluation with gallbladder ultrasound to rule out cholecystitis. 6. More nonemergent findings in the body of the report.
[2024-12-31] VITALS (13 sets, daily range): BP systolic 114–137; BP diastolic 46–57; PULSE 78–99; RESP 18–20; TEMP 98–98.7; O2SAT 89–100
[2024-12-31 06:12] LABS: Eosinophils # (auto) 0.3 10 ^3/uL (0-0.8); Hematocrit 23.5 % (41.0-53.0); Monocytes # (auto) 0.8 10 ^3/uL (0-1.3); Nucleated Red Blood Cells % 0.1 %
[2024-12-31 06:14] LABS: Basophils # (auto) 0.1 10 ^3/uL (0-0.2); Basophils % (auto) 0.7 % (0.0-2.0); Hemoglobin 7.6 g/dL (13.5-17.5); Lymphocytes % (auto) 12.8 % (10.0-50.0); Mean Corpuscular Hemoglobin 28.1 pg (28.0-32.0); Mean Corpuscular Hgb Conc. 32.3 g/dL (32.0-36.0); Mean Corpuscular Volume 87.1 fL (80.0-100.0); Monocytes % (auto) 10.2 % (0.0-12.0); Neutrophils # (auto) 5.5 10 ^3/uL (1.6-8.6); Neutrophils % (auto) 72.3 % (37.0-80.0); Platelet Count (auto) 255 10^3/uL (140-450); Red Cell Distribution Width 15.6 % (11.8-14.3); White Blood Cell 7.5 10^3/uL (4.4-10.8)
[2024-12-31 06:30] LABS: Chloride 106 mmol/L (98-107); Potassium 3.6 mmol/L (3.5-5.1)
[2024-12-31 06:31] LABS: Anion Gap 7 (5-15)
[2024-12-31 06:32] LABS: Calcium 9.5 mg/dL (8.7-10.4)
[2024-12-31 06:35] LABS: Folate (Folic Acid) 17.92 ng/mL (>5.38)
[2024-12-31 06:36] LABS: BUN/Creatinine Ratio 35.9 (10.0-20.0)
[2024-12-31 06:40] LABS: Blood Urea Nitrogen 46 mg/dL (9-23); Carbon Dioxide 33 mmol/L (20-31); Glucose 119 mg/dL (74-106); Sodium 146 mmol/L (136-145)
[2024-12-31] MEDS: FUROSEMIDE 40 MG/4 ML VIAL IV SCH (09:35)
[2024-12-31] MEDS: PANTOPRAZOLE 40 MG/10 ML VIAL INJ IV SCH ×2 (09:35→21:48)
[2024-12-31] MEDS: NICOTINE 21MG/24 HR TOPICAL PATCH TD SCH (09:45)
[2024-12-31] MEDS ORDERED: CHOLECALCIFEROL (VITD3) 1,000UNIT=25mCg TAB PO SCH (10:00)
--- NOTE | 2024-12-31 10:29 | DVHCONRES ---
Date Seen: December 31, 2024 Resident Creating Document: ABISAI SAUCEDA RESIDENT Referring Physician Dr Gillis Reason for Consultation GI bleed History of Present Illness Major Rueda, is a 84-year-old male with a PMH of COPD, type 2 DM, HTN presented to the ED with the chief complaints of SOB and chest pain for 2 days prior to admission. Patient reported for past 2 weeks he is not feeling good, last Friday patient is started on blood thinners, started not feeling well, blood pressure was very low at home and feeling like fainting, lightheadedness which prompted him to visit ED. Patient reported that he did not see any gross blood but he does observed his stool is brown. GI was consulted for possible GI bleed. After arriving to ED patient found to have low hemoglobin, transfused 2 PRBCs. Now his hemoglobin is stable. Patient reported no EGD or colonoscopy done as of now. Past Medical History Nicotine dependency Type 2 diabetes Hypertension Unknown stage CKD Morbid obesity COPD Family History: FH: cancer G8 FATHER FH: emphysema G8 MOTHER Allergies: Coded Allergies: Penicillins (Verified Allergy, Severe, 12/29/24) Current Medications Current Medications Medications (Trade) Dose Ordered Sig/Milad Route PRN Reason Start Time Stop Time Status Last Admin Furosemide (Lasix Injection) 40 mg DAILY IV 12/31/24 10:00 12/31/24 09:35 Cholecalciferol (Vitamin D3 Tablet) 4,000 unit DAILY PO 12/31/24 10:12/30/24 16:26 DC Albuterol (Ventolin Medneb) 2.[address] [facility] 12/30/24 18:00 12/31/24 05:32 Ipratropium [place] (Atrovent Medneb) 0.[address] [facility] 12/30/24 18:00 12/31/24 05:32 Pantoprazole Sodium (Protonix) 40 mg DAILY IV 12/31/24 10:00 12/31/24 09:35 Azithromycin 250 ml @ 125 mls/hr DAILY IV 12/31/24 10:00 Hold Nicotine (Nicoderm 21MG/ 24HR) 1 patch DAILY TD 12/31/24 10:00 12/31/24 09:45 Review of Systems Patient seen and examined at the bedside. patient reported no active GI complaints. Initially planning to do EGD today but patient already had breakfast. Vital Signs Vital Signs Date Time Temp Pulse Resp B/P (MAP) Pulse Ox O2 Delivery O2 Flow Rate FiO2 12/31/24 09:35 132/57 12/31/24 09:00 98.0 83 18 91 98.0 12/31/24 05:32 Nasal Cannula 2.0 12/31/24 05:32 28 Physical Exam Pt is lying on bed General Appearance: Alert, Oriented X3, Cooperative, Not in acute distress HEENT: Atraumatic, Mucous membranes moist/pink Respiratory: Clear to auscultation, Normal air movement, bilateral wheezing Cardiovascular: Regular rate, Normal S1, Normal S2, No murmurs Abdominal: Active bowel sounds, Soft, no distention, no tenderness Extremities: 3+ BLE edema, Normal pulses, No tenderness/swelling Skin: No Significant rash, except past surgical scars Neuro: Normal speech, sensorimotor deficits none Psych/Mental Status: Mental status NL, Mood NL Nurse was there as sharperone during examination Labs/Diagnostic Data Labs Test 12/31/24 05:24 12/30/24 17:58 12/30/24 10:55 12/30/24 07:12 Range/Units White Blood Count 7.5 4.4-10.8 10^3/uL Red Blood Count 2.70 L 4.5-5.90 10^6/uL Hemoglobin 7.6 L 13.5-17.5 g/dL Hematocrit 23.5 L 41.0-53.0 % Mean Corpuscular Volume 87.1 80.0-100.0 fL Mean Corpuscular Hemoglobin 28.1 28.0-32.0 pg Mean Corpuscular Hemoglobin Concent 32.3 32.0-36.0 g/dL Red Cell Distribution Width 15.6 H 11.8-14.3 % Platelet Count 255 140-450 10^3/uL Mean Platelet Volume 7.5 6.9-10.8 fL Neutrophils (%) (Auto) 72.3 37.0-80.0 % Lymphocytes (%) (Auto) 12.8 10.0-50.0 % Monocytes (%) (Auto) 10.2 0.0-12.0 % Eosinophils (%) (Auto) 4.0 0.0-7.0 % Basophils (%) (Auto) 0.7 0.0-2.0 % Neutrophils # (Auto) 5.5 1.6-8.6 10 ^3/uL Lymphocytes # (Auto) 1.0 0.4-5.4 10 ^3/uL Monocytes # (Auto) 0.8 0-1.3 10 ^3/uL Eosinophils # (Auto) 0.3 0-0.8 10 ^3/uL Basophils # (Auto) 0.1 0-0.2 10 ^3/uL Nucleated Red Blood Cells 0.1 % Sodium Level 146 H 136-145 mmol/L Potassium Level 3.6 3.5-5.1 mmol/L Chloride Level 106 98-107 mmol/L Carbon Dioxide Level 33 H 20-31 mmol/L Anion Gap 7 5-15 Blood Urea Nitrogen 46 H 9-23 mg/dL Creatinine 1.28 0.700-1.30 mg/dL Glomerular Filtration Rate Calc 56 >90 mL/min BUN/Creatinine Ratio 35.9 H 10.0-20.0 Serum Glucose 119 H 74-106 mg/dL Calcium Level 9.5 8.7-10.4 mg/dL Vitamin B12 Level 3412 H 211-911 pg/mL Folic Acid 17.92 >5.38 ng/mL POC Glucose 143 H 70-106 mg/dl Hemoglobin A1c 5.6 <5.7 % A1C Phosphorus Level 4.0 2.4-5.1 mg/dL Iron Level 24 L 65-175 ug/dL Total Iron Binding Capacity 375 250-425 ug/dL Percent Iron Saturation 6.4 L 20-55 % Total Bilirubin 0.3 0.2-1.0 mg/dL Aspartate Amino Transferase (AST) 11 L 13-40 U/L Alanine Aminotransferase (ALT) 16 7-40 U/L Alkaline Phosphatase 78 46-116 U/L Total Protein 6.1 5.7-8.2 g/dL Albumin 4.0 3.2-4.8 g/dL Vitamin D 25-Hydroxy 71.6 30.0-100 ng/mL Free Thyroxine (T4) Calculated 0.84 L 0.89-1.76 ng/dL Parathyroid Hormone (Intact) 93.5 H 18.4-80.1 pg/mL Test 12/29/24 17:25 12/29/24 10:50 Range/Units Urine Color Light-yellow Yellow Urine Clarity Clear Clear Urine pH 5.5 5.0-9.0 Urine Specific [place] 1.015 1.001-1.035 Urine Protein Negative Negative Urine Ketones Negative Negative Urine Blood Negative Negative /uL Urine Nitrite Negative Negative Urine Bilirubin Negative Negative Urine Urobilinogen Normal Negative mg/dL Urine Leukocyte Esterase Negative Negative /uL Urine RBC <1 0 - 3 /hpf Urine Microscopic WBC 3 0-3 /HPF Urine Squamous Epithelial Cells Few <5 /hpf Urine Bacteria Few H None Seen /hpf Urine Glucose Normal Normal mg/dL Magnesium Level 1.9 1.6-2.6 mg/dL Troponin I High Sensitivity 32 </=54 ng/L B-Type Natriuretic Peptide 85.03 0-100 pg/mL Thyroid Stimulating Hormone (TSH) 0.54 L 0.55-4.78 uIU/mL Assessment Severe anemia requiring blood transfusion Possible GI bleed FLY COPD exacerbation ? CHF Plan/Recommendation Transfuse if hemoglobin is less than 7 Protonix 40 mg IV b.i.d. Sucralfate t.i.d. Stool occult blood CT abdominal pelvis showed cholelithiasis, nodular liver counter concerning for cirrhosis Eventually EGD depend on OR availability Avoid NSAIDs, aspirin, caustic agents Thank you so much for the opportunity to consult on your patient. GI team will follow the patient Case an action plan discussed with Dr. Iqra Chand. Complex care planning needed total 49 minutes of detailed discussion. Plan discussed with: Patient, Son ABISAI SAUCEDA RESIDENT December 31, 2024 10:29
[2024-12-31] MEDS: SUCRALFATE 1 GM/10 ML ORAL SUSP GT SCH (10:50)
[2024-12-31] MEDS: AZITHROMYCIN 500MG/ 250ML 250 ML IV ONE (10:51)
--- NOTE | 2024-12-31 12:30 | DVHPN2 ---
Subjective The patient is seen and examined bedside. Remain weak Reviewed: Care Plan, H&P, Labs, Medications, Previous Orders, Radiology Changes from previous H/P or p: No Changes Eyes: No Pain, No Vision change, No Conjunctivae inflammation, No Eyelid inflammation, No Other, No Redness ENT: No Ear pain, No Ear discharge, No Nose pain, No Nose discharge, No Nose congestion, No Mouth pain, No Mouth swelling, No Throat pain, No Throat swelling, No Other Cardiovascular: No Chest Pain, No Palpitations, No Orthopnea, No Paroxysmal Noc. Dyspnea, No Edema, No Lt Headedness, No Other Respiratory: Cough; No Dry; Shortness of breath; No SOB with excertion, No Wheezing, No Hemoptysis, No Pleuritic Pain, No Sputum, No Other Gastrointestinal: No Nausea, No Vomiting, No Abdominal Pain, No Diarrhea, No Constipation, No Melena, No Hematochezia, No Other Genitourinary: No Dysuria, No Frequency, No Incontinence, No Hematuria, No Retention, No Other Musculoskeletal: other (Bilateral lower extremity swelling); No neck pain, No shoulder pain, No arm pain, No back pain, No hand pain, No leg pain, No foot pain Skin: No Rash, No Lesions, No Jaundice, No Bruising, No Other Objective Vitals Vital Signs Date Time Temp Pulse Resp B/P (MAP) Pulse Ox O2 Delivery O2 Flow Rate FiO2 12/31/24 11:22 89 18 100 12/31/24 11:14 Room Air 0.0 12/31/24 11:14 21 12/31/24 09:35 132/57 12/31/24 09:00 98.0 98.0 Intake/Output Intake and Output 12/31/24 07:00 Intake Total 1660 ml Output Total 1630 ml Balance 30 ml Intake Oral 1660 ml Output Urine Total 1630 ml # Bowel Movements 1 General Appearance: Alert, Cooperative, No acute distress HEENT: Atraumatic, PERRLA, EOMI, Mucous membr. moist/pink Neck: Carotid Bruits [place], Enlarged Thyroid, JVD, Lymphadenopathy, Rigidity, S upple Lungs: Clear to auscultation, Normal air movement Cardiovascular: Regular rate, Normal S1, Normal S2 Abdomen: Normal bowel sounds, Soft, No tenderness Neuro: Cranial nerves 3-12 NL Psych/Mental Status: Mental status NL Medications Current Medications Medications Dose Ordered Sig/Milad Route Start Time Stop Time Status Last Admin Dose Admin Terazosin HCl 10 mg HS PO 12/29/24 22:00 12/30/24 21:39 10 MG Sodium Chloride 10 ml Q8HR IV 12/29/24 22:00 12/31/24 05:38 10 ML Acetaminophen/ Hydrocodone Bitart 1 tab Q4HP PRN PO 12/29/24 16:00 Ondansetron HCl 4 mg Q4HP PRN IV 12/29/24 16:00 Docusate Sodium 100 mg BIDPRN PRN PO 12/29/24 16:00 Acetaminophen 650 mg Q6HP PRN PO 12/29/24 16:00 Nitroglycerin 0.4 mg Q5MINP PRN SL 12/29/24 16:00 Morphine Sulfate 2 mg Q30M PRN IV 12/29/24 16:00 Furosemide 40 mg DAILY IV 12/31/24 10:00 12/31/24 09:35 40 MG Albuterol 2.5 mg Q6HWA [facility] 12/30/24 18:00 12/31/24 11:13 2.5 MG Ipratropium [place] 0.5 mg Q6HWA NEB 12/30/24 18:00 12/31/24 11:13 0.5 MG Azithromycin 250 ml @ 125 mls/hr DAILY IV 12/31/24 10:00 Nicotine 1 patch DAILY TD 12/31/24 10:00 12/31/24 09:45 1 PATCH Pantoprazole Sodium 40 mg BID IV 12/31/24 22:00 Sucralfate 1 gm TID@0600,1130,2200 GT 12/31/24 11:30 12/31/24 10:50 1 GM Laboratory Results Laboratory Tests 12/31/24 05:24 Chemistry Test 12/31/24 05:24 Calcium Level 9.5 mg/dL (8.7-10.4) Urinalysis Test 12/29/24 17:25 Urine Color Light-yellow (Yellow) Urine Clarity Clear (Clear) Urine pH 5.5 (5.0-9.0) Urine Specific [place] 1.015 (1.001-1.035) Urine Protein Negative (Negative) Urine Ketones Negative (Negative) Urine Blood Negative /uL (Negative) Urine Nitrite Negative (Negative) Urine Bilirubin Negative (Negative) Urine Urobilinogen Normal mg/dL (Negative) Urine Leukocyte Esterase Negative /uL (Negative) Urine RBC <1 /hpf (0 - 3) Urine Microscopic WBC 3 /HPF (0-3) Urine Squamous Epithelial Cells Few /hpf (<5) Urine Bacteria Few /hpf (None Seen) H Urine Glucose Normal mg/dL (Normal) Labs and/or images reviewed: Labs reviewed by me Assessment/Plan Assessment/Plan #1 anemia: check stool, gi eval, ct abd #2 copd: bronchodilators #3 ? pneumonia: iv zithromax #4 obesity #5 h/o prostate cancer #6 ? acute systolic/diastolic heart failure: lasix iv #7 acute on chronic renal failure ?vasomotor nephropathy #8 htn #9 tobacco abuse: advised to quit, nicotine patch, time spent 11 mins #10 chronic resp failure Continuing management. Waiting for EGD. Patient apparently was scheduled for EGD today but he ate breakfast so the procedure was canceled. Continue with bronchodilators Continue with Lasix Advised to stop smoking Kidney function is improved flow continuing to monitor Discuss with to son bedside who state that they want full workup. I will wait for GI input. Plan discussed with: Patient Date of Service: December 31, 2024 Billing Provider: STEVEN CASH MD Common Visit Codes: [id number] INP/OBS CARE(HIGH) STEVEN CASH MD December 31, 2024 12:30
--- NOTE | 2024-12-31 13:13 | DVHSR ---
APPROVED REPORT EXAM: Two-dimensional and M-mode echocardiogram with Doppler and color Doppler. Blood Pressure: 116/46 mmHg INDICATION CHF RISK FACTORS Height: 65, Weight: 240 DIMENSIONS LVDd (3.8-5.7cm)LA (2D)4.9 (1.9-4.0cm)Aortic Root (2.0-3.7cm) EF (%) 66.0 (55-70%)Rt. Atrium4.3 (1.9-4.0cm)Asc. Aorta cm Mitral Valve MitralMitral Stenosis E wave1.51m/sMV Mean GR.4mmHg A wave1.38m/sMV Peak GR.123mmHg E/A ratio1.12D MVAcm2 DECEL [id number] 1/2 Uute78lh IVRTmsDop MVA2.69cm2 Aortic Valve Aortic ValveAortic Stenosis V11.42m/Tiffany Mean GR.43mmHg V24.38m/Tiffany Peak GR.77mmHg Other Information Technically limited study due to body habitus. Conclusion lvef 70% by visual estimate normal rv function left atrium enlarged severe aortic stenosis consider further workup
--- NOTE | 2024-12-31 15:43 | DVHPN2 ---
Progress Note Date Seen: December 31, 2024 Resident Creating Document: LESTER MAJOR RESIDENT Medical Necessity Reason Pt with a Central, PICC or Fol: No Reason for carballo catheter: Strict I&O Subjective Review of Systems Patient is seen examined at bedside, kidney function are improving, there is no further workup indicated at this time we are signing off. Patient reports: Feels better Changes from previous H/P or p: Changes Review of Systems: HEENT:Normal, CVS:Normal, RESPIRATORY:Normal, GI:Normal, :Normal, MSK:Normal, NEURO:Normal Objective vital signs Vital Sign Date Time Temp Pulse Resp B/P (MAP) Pulse Ox O2 Delivery O2 Flow Rate FiO2 12/31/24 13:00 98.7 88 20 137/52 (80) 94 98.7 12/31/24 11:14 Room Air 0.0 12/31/24 11:14 21 Total Intake and Output 12/30/24 12/30/24 12/31/24 15:00 23:00 07:00 Intake Total 960 ml 700 ml Output Total 780 ml 850 ml Balance 180 ml -150 ml medications Current Medications Medications Dose Ordered Sig/Milad Route Start Time Stop Time Status Last Admin Dose Admin Terazosin HCl 10 mg HS PO 12/29/24 22:00 12/30/24 21:39 10 MG Sodium Chloride 10 ml Q8HR IV 12/29/24 22:00 12/31/24 14:11 10 ML Acetaminophen/ Hydrocodone Bitart 1 tab Q4HP PRN PO 12/29/24 16:00 Ondansetron HCl 4 mg Q4HP PRN IV 12/29/24 16:00 Docusate Sodium 100 mg BIDPRN PRN PO 12/29/24 16:00 Acetaminophen 650 mg Q6HP PRN PO 12/29/24 16:00 Nitroglycerin 0.4 mg Q5MINP PRN SL 12/29/24 16:00 Morphine Sulfate 2 mg Q30M PRN IV 12/29/24 16:00 Furosemide 40 mg DAILY IV 12/31/24 10:00 12/31/24 09:35 40 MG Albuterol 2.5 mg Q6HWA NEB 12/30/24 18:00 12/31/24 11:13 2.5 MG Ipratropium [place] 0.5 mg Q6HWA NEB 12/30/24 18:00 12/31/24 11:13 0.5 MG Azithromycin 250 ml @ 125 mls/hr DAILY IV 12/31/24 10:00 Nicotine 1 patch DAILY TD 12/31/24 10:00 12/31/24 09:45 1 PATCH Pantoprazole Sodium 40 mg BID IV 12/31/24 22:00 Sucralfate 1 gm TID@0600,1130,2200 GT 12/31/24 11:30 12/31/24 10:50 1 GM Examination: GENERAL:Normal, HEENT:Normal, NECK:Normal, LUNGS:Normal, CVS:Normal, ABDOMEN:Normal, MSK:Normal, SKIN:Normal, NEURO:Normal, :Normal laboratory and microbiology Laboratory Tests 12/31/24 05:24 Test 12/31/24 05:24 Range/Units Serum Glucose 119 H 74-106 mg/dL Problem List/Assessment/Plan Problem List/Assessment/Plan Acute kidney injury on chronic kidney disease likely due to VMN in the setting of severe anemia status post transfusion Severe anemia status post transfusion Secondary hyperparathyroidism Nicotine dependency Morbid obesity COPD exacerbation Rule out DVT Plan Kidney function improving Continue Lasix 40 IV daily change to po lasix on dc DVT ultrasound was unremarkable Monitor BNP and electrolytes replaced as needed. Strict I&O Thank you for allowing us participate in this case there is no further workup indicated at this time we are signing off. Patient was advised to follow up with Nephrology in the outpatient Case discussed with Dr. Sanchez Code status: Full code Addendum Patient seen and examined, plan discussed with resident. Agree with above, Plan discussed with: Patient CC Plasma Assessment Blood Product Administration S: [id number] LESTER MAJOR RESIDENT December 31, 2024 15:43 ATUL SANCHEZ MD December 31, 2024 16:14
[2025-01-01] VITALS (15 sets, daily range): BP systolic 101–129; BP diastolic 34–81; PULSE 84–107; RESP 18–20; TEMP 97.5–98.5; O2SAT 92–100
[2025-01-01 05:53] LABS: INR 1.04 (0.9-1.15); Partial Thromboplastin Time 24.2 SEC (24.5-34.5)
[2025-01-01] MEDS ORDERED: fentaNYL CITRATE 100 MCG/2 ML VL ONE (08:47)
[2025-01-01] MEDS: MIDAZOLAM HCL 2MG/2ML 2ml VIAL (1mg/ml) ONE (09:10)
--- NOTE | 2025-01-01 09:22 | DVHNC2 ---
Procedure - PROCEDURE DATE: JANUARY 01, 2025 PROCEDURE PERFORMED BY: Sushma Partida MD REFERRING PROVIDER: Mychal Mcnally PROCEDURE PERFORMED: 1. ESOPHAGOGASTRODUODENOSCOPY WITH MODERATE SEDATION PRE-PROCEDURE DIAGNOSIS: 1. ANEMIA 2. SUSPECTED GI BLEED POSTPROCEDURE DIAGNOSIS: 1. MILD EROSIVE GASTRITIS 2. MILD EROSIVE DUODENITIS 3. NONOBSTRUCTING SCHATZKI'S RING 4. 2 CM HIATAL HERNIA INDICATIONS FOR PROCEDURE: Patient is an 84-year-old male with a history of COPD diabetes, morbid obesity, recently started on blood thinners with anemia, acute kidney injury, weakness and fatigue. Thought to have GI bleed. EGD is warranted for evaluation and treatment. MEDICATIONS USED: 4mg of Versed IV was given in incremental doses DETAILS OF THE PROCEDURE: Informed consent was obtained after risks, benefits, and alternatives, were discussed at length with the patient. The patient gave consent to the procedure as well as some medication used for sedation. The patient was placed in the left lateral decubitus . An Olympus endoscope was inserted into the oropharynx advanced into the esophagus, then into the stomach, then into the duodenal bulb and duodenum. The scope was then withdrawn. The duodenal bulb and duodenum showed mild duodenitis and scope trauma with advancing the scope with contact oozing. The scope was then withdrawn the stomach showed mild erosive gastritis in the pre-pyloric area antrum. There was no old blood or fresh blood seen. There was no masses or arteriovenous malformation seen. Retroflexion showed a small hiatal hernia. Retained secretions were suctioned out were washed off. The scope was then withdrawn the patient had a nonobstructing Schatzki's ring and a 2 cm hiatal hernia. The scope was then withdrawn and the procedure completed the patient tolerated the procedure well. IMPRESSION: 1. Mild erosive esophagitis and mild erosive duodenitis 2. Small hiatal hernia RECOMMENDATION: 1. Follow H and H and transfuse to keep hemoglobin above seven 2. Caution with aspirin NSAIDs and anticoagulants 3. GI will follow 4. Consider further workup with colonoscopy and or small-bowel imaging and/or VCE 5. Anti-reflux precautions 6. Proton pump inhibitor twice daily I WOULD LIKE TO THANK DR MCNALLY FOR THIS REFERRAL SUSHMA PARTIDA MD January 01, 2025 09:22
--- NOTE | 2025-01-01 09:47 | ECG ---
[facility] Test Date: 2025-01-01 Test Time: 00:53:15 Pat Name: JORDAN CASTRO Department: Room: 0273T B Gender: M Steam Hand: JOHN : 1940 Requested By: STVEEN CASH Order Number: [id number] Reading MD: Dmitri Pederson Measurements Intervals [place] Rate: 88 P: 74 IA: 197 QRS: 66 QRSD: 151 T: 45 QT: 401 QTc: 486 Interpretive Statements Sinus rhythm IVCD, consider atypical RBBB ST depr, consider ischemia, anterolateral lds Baseline wander in lead(s) V6 Electronically Signed On 01-05-2025 11:34:40 PDT by Dmitri Pederson Please click the below link to view image of tracing.
[2025-01-01] MEDS: AZITHROMYCIN 500MG/ 250ML 250 ML IV SCH (11:19)
[2025-01-01 13:08] LABS: PSA Free 0.13 ng/mL; Prostate Specific Antigen 0.7 ng/mL (0.0-4.0)
[2025-01-01 15:05] LABS: Basophils # (auto) 0.1 10 ^3/uL (0-0.2); Eosinophils # (auto) 0.3 10 ^3/uL (0-0.8); Hemoglobin 7.2 g/dL (13.5-17.5); Lymphocytes # (auto) 0.6 10 ^3/uL (0.4-5.4); Monocytes # (auto) 0.8 10 ^3/uL (0-1.3); Neutrophils # (auto) 6.9 10 ^3/uL (1.6-8.6); White Blood Cell 8.7 10^3/uL (4.4-10.8)
[2025-01-01 15:07] LABS: Eosinophils % (auto) 2.9 % (0.0-7.0); Hematocrit 22.5 % (41.0-53.0); Lymphocytes % (auto) 6.8 % (10.0-50.0); Mean Corpuscular Hemoglobin 28.3 pg (28.0-32.0); Mean Corpuscular Hgb Conc. 31.9 g/dL (32.0-36.0); Mean Corpuscular Volume 88.7 fL (80.0-100.0); Monocytes % (auto) 9.3 % (0.0-12.0); Nucleated Red Blood Cells % 0.1 %; Platelet Count (auto) 251 10^3/uL (140-450); Red Blood Cells 2.54 10^6/uL (4.5-5.90)
[2025-01-01 15:10] LABS: Chloride 105 mmol/L (98-107); Potassium 3.9 mmol/L (3.5-5.1)
[2025-01-01 15:11] LABS: Anion Gap 6 (5-15); Calcium 9.7 mg/dL (8.7-10.4); Carbon Dioxide 35 mmol/L (20-31); Sodium 146 mmol/L (136-145)
[2025-01-01 15:16] LABS: BUN/Creatinine Ratio 32.3 (10.0-20.0)
[2025-01-01 15:20] LABS: Blood Urea Nitrogen 43 mg/dL (9-23); Glucose 131 mg/dL (74-106)
[2025-01-02] VITALS (16 sets, daily range): BP systolic 99–118; BP diastolic 37–47; PULSE 86–105; RESP 18–20; TEMP 98–98.7; O2SAT 91–100
[2025-01-02] MEDS: DOCUSATE SOD 100 MG CAP PO PRN (11:59)
[2025-01-02 14:14] LABS: Basophils # (auto) 0.1 10 ^3/uL (0-0.2); Lymphocytes # (auto) 0.6 10 ^3/uL (0.4-5.4); Mean Corpuscular Volume 86.7 fL (80.0-100.0); Monocytes # (auto) 0.9 10 ^3/uL (0-1.3); Monocytes % (auto) 10.2 % (0.0-12.0); Neutrophils # (auto) 7.3 10 ^3/uL (1.6-8.6); Nucleated Red Blood Cells % 0.1 %
[2025-01-02 14:16] LABS: Eosinophils # (auto) 0.3 10 ^3/uL (0-0.8); Eosinophils % (auto) 2.8 % (0.0-7.0); Hematocrit 22.7 % (41.0-53.0); Hemoglobin 7.4 g/dL (13.5-17.5); Lymphocytes % (auto) 6.9 % (10.0-50.0); Mean Corpuscular Hemoglobin 28.3 pg (28.0-32.0); Mean Corpuscular Hgb Conc. 32.7 g/dL (32.0-36.0); Neutrophils % (auto) 79.1 % (37.0-80.0); Platelet Count (auto) 260 10^3/uL (140-450); Red Blood Cells 2.61 10^6/uL (4.5-5.90); Red Cell Distribution Width 16.2 % (11.8-14.3); White Blood Cell 9.2 10^3/uL (4.4-10.8)
--- NOTE | 2025-01-02 22:54 | DVHPN2 ---
Subjective The patient is seen and examined bedside. Remain weak Reviewed: Care Plan, H&P, Labs, Medications, Previous Orders, Radiology Changes from previous H/P or p: No Changes Eyes: No Pain, No Vision change, No Conjunctivae inflammation, No Eyelid inflammation, No Other, No Redness ENT: No Ear pain, No Ear discharge, No Nose pain, No Nose discharge, No Nose congestion, No Mouth pain, No Mouth swelling, No Throat pain, No Throat swelling, No Other Cardiovascular: No Chest Pain, No Palpitations, No Orthopnea, No Paroxysmal Noc. Dyspnea, No Edema, No Lt Headedness, No Other Respiratory: Cough; No Dry; Shortness of breath; No SOB with excertion, No Wheezing, No Hemoptysis, No Pleuritic Pain, No Sputum, No Other Gastrointestinal: No Nausea, No Vomiting, No Abdominal Pain, No Diarrhea, No Constipation, No Melena, No Hematochezia, No Other Genitourinary: No Dysuria, No Frequency, No Incontinence, No Hematuria, No Retention, No Other Musculoskeletal: other (Bilateral lower extremity swelling); No neck pain, No shoulder pain, No arm pain, No back pain, No hand pain, No leg pain, No foot pain Skin: No Rash, No Lesions, No Jaundice, No Bruising, No Other Objective Vitals Vital Signs Date Time Temp Pulse Resp B/P (MAP) Pulse Ox O2 Delivery O2 Flow Rate FiO2 01/02/25 21:00 98.7 93 18 103/47 (65) 93 98.7 01/02/25 18:38 Nasal Cannula* 2 28 Intake/Output Intake and Output 01/02/25 07:00 Intake Total 510 ml Balance 510 ml Intake Oral 250 ml IV Total 260 ml # Voids 2 General Appearance: Alert, Cooperative, No acute distress HEENT: Atraumatic, PERRLA, EOMI, Mucous membr. moist/pink Neck: Carotid Bruits [place], Enlarged Thyroid, JVD, Lymphadenopathy, Rigidity, S upple Lungs: Clear to auscultation, Normal air movement Cardiovascular: Regular rate, Normal S1, Normal S2 Abdomen: Normal bowel sounds, Soft, No tenderness Neuro: Cranial nerves 3-12 NL Psych/Mental Status: Mental status NL Medications Current Medications Medications Dose Ordered Sig/Milad Route Start Time Stop Time Status Last Admin Dose Admin Terazosin HCl 10 mg HS PO 12/29/24 22:00 01/01/25 21:25 10 MG Sodium Chloride 10 ml Q8HR IV 12/29/24 22:00 01/02/25 14:00 10 ML Acetaminophen/ Hydrocodone Bitart 1 tab Q4HP PRN PO 12/29/24 16:00 Ondansetron HCl 4 mg Q4HP PRN IV 12/29/24 16:00 Docusate Sodium 100 mg BIDPRN PRN PO 12/29/24 16:00 01/02/25 11:59 100 MG Acetaminophen 650 mg Q6HP PRN PO 12/29/24 16:00 Nitroglycerin 0.4 mg Q5MINP PRN SL 12/29/24 16:00 Morphine Sulfate 2 mg Q30M PRN IV 12/29/24 16:00 Furosemide 40 mg DAILY IV 12/31/24 10:00 01/02/25 10:06 40 MG Albuterol 2.5 mg Q6HWA [facility] 12/30/24 18:00 01/02/25 18:41 2.5 MG Ipratropium [place] 0.5 mg Q6HWA [facility] 12/30/24 18:00 01/02/25 18:42 0.5 MG Azithromycin 250 ml @ 125 mls/hr DAILY IV 12/31/24 10:00 01/02/25 10:05 125 MLS/HR Nicotine 1 patch DAILY TD 12/31/24 10:00 01/02/25 10:06 1 PATCH Pantoprazole Sodium 40 mg BID IV 12/31/24 22:00 01/02/25 10:05 40 MG Sucralfate 1 gm TID@0600,1130,2200 GT 12/31/24 11:30 01/02/25 11:59 1 GM Laboratory Results Laboratory Tests 01/01/25 04:46 01/02/25 14:00 Urinalysis Test 12/29/24 17:25 Urine Color Light-yellow (Yellow) Urine Clarity Clear (Clear) Urine pH 5.5 (5.0-9.0) Urine Specific [place] 1.015 (1.001-1.035) Urine Protein Negative (Negative) Urine Ketones Negative (Negative) Urine Blood Negative /uL (Negative) Urine Nitrite Negative (Negative) Urine Bilirubin Negative (Negative) Urine Urobilinogen Normal mg/dL (Negative) Urine Leukocyte Esterase Negative /uL (Negative) Urine RBC <1 /hpf (0 - 3) Urine Microscopic WBC 3 /HPF (0-3) Urine Squamous Epithelial Cells Few /hpf (<5) Urine Bacteria Few /hpf (None Seen) H Urine Glucose Normal mg/dL (Normal) Labs and/or images reviewed: Labs reviewed by me Assessment/Plan Assessment/Plan #1 anemia: check stool, g #2 copd: bronchodilators #3 ? pneumonia: iv zithromax #4 obesity #5 h/o prostate cancer #6 ? acute systolic/diastolic heart failure: lasix iv #7 acute on chronic renal failure ?vasomotor nephropathy #8 htn #9 tobacco abuse: advised to quit, nicotine patch, time spent 15 mins #10 chronic resp failure Continuing management. Waiting for EGD. The patient has EGD reschedule today. Will follow up Continue with bronchodilators Continue with zithromax. Continue with Lasix Advised to stop smoking Kidney function is improved flow continuing to monitor Discuss with to son bedside who state that they want full workup. Plan discussed with: Patient My Orders Orders - STEVEN CASH MD Procedure Category Date Status Time Complete Blood Count LAB 01/03/25 Verified 04:00 Complete Blood Count LAB 01/04/25 Verified 04:00 Date of Service: January 01, 2025 Billing Provider: STEVEN CASH MD Common Visit Codes: [id number] INP/OBS CARE(HIGH) STEVEN CASH MD January 02, 2025 22:54
--- NOTE | 2025-01-02 22:59 | DVHPN2 ---
Subjective The patient is seen and examined bedside. Remain weak. Hb drop to 7.2 yesterday. Today is up to 7.4 Reviewed: Care Plan, H&P, Labs, Medications, Previous Orders, Radiology Changes from previous H/P or p: No Changes Eyes: No Pain, No Vision change, No Conjunctivae inflammation, No Eyelid inflammation, No Other, No Redness ENT: No Ear pain, No Ear discharge, No Nose pain, No Nose discharge, No Nose congestion, No Mouth pain, No Mouth swelling, No Throat pain, No Throat swelling, No Other Cardiovascular: No Chest Pain, No Palpitations, No Orthopnea, No Paroxysmal Noc. Dyspnea, No Edema, No Lt Headedness, No Other Respiratory: Cough; No Dry; Shortness of breath; No SOB with excertion, No Wheezing, No Hemoptysis, No Pleuritic Pain, No Sputum, No Other Gastrointestinal: No Nausea, No Vomiting, No Abdominal Pain, No Diarrhea, No Constipation, No Melena, No Hematochezia, No Other Genitourinary: No Dysuria, No Frequency, No Incontinence, No Hematuria, No Retention, No Other Musculoskeletal: other (Bilateral lower extremity swelling); No neck pain, No shoulder pain, No arm pain, No back pain, No hand pain, No leg pain, No foot pain Skin: No Rash, No Lesions, No Jaundice, No Bruising, No Other Objective Vitals Vital Signs Date Time Temp Pulse Resp B/P (MAP) Pulse Ox O2 Delivery O2 Flow Rate FiO2 01/02/25 21:00 98.7 93 18 103/47 (65) 93 98.7 01/02/25 18:38 Nasal Cannula* 2 28 Intake/Output Intake and Output 01/02/25 07:00 Intake Total 510 ml Balance 510 ml Intake Oral 250 ml IV Total 260 ml # Voids 2 General Appearance: Alert, Cooperative, No acute distress HEENT: Atraumatic, PERRLA, EOMI, Mucous membr. moist/pink Neck: Carotid Bruits [place], Enlarged Thyroid, JVD, Lymphadenopathy, Rigidity, S upple Lungs: Clear to auscultation, Normal air movement Cardiovascular: Regular rate, Normal S1, Normal S2 Abdomen: Normal bowel sounds, Soft, No tenderness Neuro: Cranial nerves 3-12 NL Psych/Mental Status: Mental status NL Medications Current Medications Medications Dose Ordered Sig/Milad Route Start Time Stop Time Status Last Admin Dose Admin Terazosin HCl 10 mg HS PO 12/29/24 22:00 01/01/25 21:25 10 MG Sodium Chloride 10 ml Q8HR IV 12/29/24 22:00 01/02/25 14:00 10 ML Acetaminophen/ Hydrocodone Bitart 1 tab Q4HP PRN PO 12/29/24 16:00 Ondansetron HCl 4 mg Q4HP PRN IV 12/29/24 16:00 Docusate Sodium 100 mg BIDPRN PRN PO 12/29/24 16:00 01/02/25 11:59 100 MG Acetaminophen 650 mg Q6HP PRN PO 12/29/24 16:00 Nitroglycerin 0.4 mg Q5MINP PRN SL 12/29/24 16:00 Morphine Sulfate 2 mg Q30M PRN IV 12/29/24 16:00 Furosemide 40 mg DAILY IV 12/31/24 10:00 01/02/25 10:06 40 MG Albuterol 2.5 mg Q6HWA NEB 12/30/24 18:00 01/02/25 18:41 2.5 MG Ipratropium [place] 0.5 mg Q6HWA NEB 12/30/24 18:00 01/02/25 18:42 0.5 MG Azithromycin 250 ml @ 125 mls/hr DAILY IV 12/31/24 10:00 01/02/25 10:05 125 MLS/HR Nicotine 1 patch DAILY TD 12/31/24 10:00 01/02/25 10:06 1 PATCH Pantoprazole Sodium 40 mg BID IV 12/31/24 22:00 01/02/25 10:05 40 MG Sucralfate 1 gm TID@0600,1130,2200 GT 12/31/24 11:30 01/02/25 11:59 1 GM Laboratory Results Laboratory Tests 01/01/25 04:46 01/02/25 14:00 Urinalysis Test 12/29/24 17:25 Urine Color Light-yellow (Yellow) Urine Clarity Clear (Clear) Urine pH 5.5 (5.0-9.0) Urine Specific [place] 1.015 (1.001-1.035) Urine Protein Negative (Negative) Urine Ketones Negative (Negative) Urine Blood Negative /uL (Negative) Urine Nitrite Negative (Negative) Urine Bilirubin Negative (Negative) Urine Urobilinogen Normal mg/dL (Negative) Urine Leukocyte Esterase Negative /uL (Negative) Urine RBC <1 /hpf (0 - 3) Urine Microscopic WBC 3 /HPF (0-3) Urine Squamous Epithelial Cells Few /hpf (<5) Urine Bacteria Few /hpf (None Seen) H Urine Glucose Normal mg/dL (Normal) Labs and/or images reviewed: Labs reviewed by me Assessment/Plan Assessment/Plan #1 anemia: stool occult still pending. #2 copd: bronchodilators #3 ? pneumonia: iv zithromax #4 obesity #5 h/o prostate cancer #6 ? acute systolic/diastolic heart failure: lasix iv #7 acute on chronic renal failure ?vasomotor nephropathy #8 htn #9 tobacco abuse: advised to quit, nicotine patch, time spent 15 mins #10 chronic resp failure Continuing management. EGD showed: Mild erosive esophagitis and mild erosive duodenitis. Small hiatal hernia Continue with bronchodilators Continue with zithromax. Continue with Lasix Advised to stop smoking Kidney function is improved flow continuing to monitor Discuss with to son bedside who state that they want full workup. Waiting for GI specialist regarding to Hb and ?colonoscopy. Still waiting for stool occult. Plan discussed with: Patient, Son My Orders Orders - STEVEN CASH MD Procedure Category Date Status Time Complete Blood Count LAB 01/03/25 Verified 04:00 Complete Blood Count LAB 01/04/25 Verified 04:00 Date of Service: January 02, 2025 Billing Provider: STEVEN CASH MD Common Visit Codes: [id number] INP/OBS CARE(HIGH) STEVEN CASH MD January 02, 2025 22:59
[2025-01-03] VITALS (16 sets, daily range): BP systolic 105–131; BP diastolic 43–49; PULSE 73–106; RESP 16–22; TEMP 98.1–98.8; O2SAT 90–99
[2025-01-03 06:38] LABS: Basophils # (auto) 0.1 10 ^3/uL (0-0.2); Basophils % (auto) 0.8 % (0.0-2.0); Eosinophils # (auto) 0.3 10 ^3/uL (0-0.8); Eosinophils % (auto) 4.6 % (0.0-7.0); Hematocrit 22.5 % (41.0-53.0); Hemoglobin 7.3 g/dL (13.5-17.5); Lymphocytes # (auto) 0.5 10 ^3/uL (0.4-5.4); Lymphocytes % (auto) 7.2 % (10.0-50.0); Mean Corpuscular Hemoglobin 28.1 pg (28.0-32.0); Mean Corpuscular Hgb Conc. 32.4 g/dL (32.0-36.0); Mean Corpuscular Volume 86.6 fL (80.0-100.0); Monocytes # (auto) 0.7 10 ^3/uL (0-1.3); Monocytes % (auto) 9.1 % (0.0-12.0); Neutrophils # (auto) 5.9 10 ^3/uL (1.6-8.6); Neutrophils % (auto) 78.3 % (37.0-80.0); Platelet Count (auto) 250 10^3/uL (140-450); White Blood Cell 7.6 10^3/uL (4.4-10.8)
--- NOTE | 2025-01-03 13:51 | DVHPN2 ---
Subjective Patient denies any symptoms. Reviewed: Care Plan, H&P, Labs, Medications, Previous Orders, Radiology Changes from previous H/P or p: No Changes General: Per HPI Eyes: No Pain, No Vision change, No Conjunctivae inflammation, No Eyelid inflammation, No Other, No Redness ENT: No Ear pain, No Ear discharge, No Nose pain, No Nose discharge, No Nose congestion, No Mouth pain, No Mouth swelling, No Throat pain, No Throat swelling, No Other Cardiovascular: No Chest Pain, No Palpitations, No Orthopnea, No Paroxysmal Noc. Dyspnea, No Edema, No Lt Headedness, No Other Respiratory: Cough; No Dry; Shortness of breath; No SOB with excertion, No Wheezing, No Hemoptysis, No Pleuritic Pain, No Sputum, No Other Gastrointestinal: No Nausea, No Vomiting, No Abdominal Pain, No Diarrhea, No Constipation, No Melena, No Hematochezia, No Other Genitourinary: No Dysuria, No Frequency, No Incontinence, No Hematuria, No Retention, No Other Musculoskeletal: other (Bilateral lower extremity swelling); No neck pain, No shoulder pain, No arm pain, No back pain, No hand pain, No leg pain, No foot pain Skin: No Rash, No Lesions, No Jaundice, No Bruising, No Other Objective Vitals Vital Signs Date Time Temp Pulse Resp B/P (MAP) Pulse Ox O2 Delivery O2 Flow Rate FiO2 01/03/25 12:00 106 20 99 01/03/25 11:54 Nasal Cannula* 3 32 01/03/25 09:25 109/43 01/03/25 09:00 98.4 98.4 Intake/Output Intake and Output 01/03/25 07:00 Intake Total 1340 ml Output Total 1550 ml Balance -210 ml Intake Oral 1090 ml IV Total 250 ml Output Urine Total 1550 ml General Appearance: Alert, Cooperative, No acute distress HEENT: Atraumatic, PERRLA, EOMI, Mucous membr. moist/pink Neck: Carotid [place]its [place], Enlarged Thyroid, JVD, Lymphadenopathy, Rigidity, S upple Lungs: Clear to auscultation, Normal air movement Cardiovascular: Regular rate, Normal S1, Normal S2 Abdomen: Normal bowel sounds, Soft, No tenderness Neuro: Cranial nerves 3-12 NL Skin: Dry, Intact Psych/Mental Status: Mental status NL Medications Current Medications Medications Dose Ordered Sig/Milad Route Start Time Stop Time Status Last Admin Dose Admin Terazosin HCl 10 mg HS PO 12/29/24 22:00 01/02/25 22:47 10 MG Sodium Chloride 10 ml Q8HR IV 12/29/24 22:00 01/03/25 06:00 10 ML Acetaminophen/ Hydrocodone Bitart 1 tab Q4HP PRN PO 12/29/24 16:00 Ondansetron HCl 4 mg Q4HP PRN IV 12/29/24 16:00 Docusate Sodium 100 mg BIDPRN PRN PO 12/29/24 16:00 01/03/25 09:13 100 MG Acetaminophen 650 mg Q6HP PRN PO 12/29/24 16:00 Nitroglycerin 0.4 mg Q5MINP PRN SL 12/29/24 16:00 Morphine Sulfate 2 mg Q30M PRN IV 12/29/24 16:00 Furosemide 40 mg DAILY IV 12/31/24 10:00 01/02/25 10:06 40 MG Albuterol 2.5 mg Q6HWA [facility] 12/30/24 18:00 01/03/25 11:49 2.5 MG Ipratropium [place] 0.5 mg Q6HWA NEB 12/30/24 18:00 01/03/25 11:49 0.5 MG Azithromycin 250 ml @ 125 mls/hr DAILY IV 12/31/24 10:00 01/03/25 09:14 125 MLS/HR Nicotine 1 patch DAILY TD 12/31/24 10:00 01/03/25 09:13 1 PATCH Pantoprazole Sodium 40 mg BID IV 12/31/24 22:00 01/03/25 10:38 40 MG Sucralfate 1 gm TID@0600,1130,2200 GT 12/31/24 11:30 01/03/25 12:00 1 GM Laboratory Results Laboratory Tests 01/01/25 04:46 01/03/25 05:51 Urinalysis Test 12/29/24 17:25 Urine Color Light-yellow (Yellow) Urine Clarity Clear (Clear) Urine pH 5.5 (5.0-9.0) Urine Specific [place] 1.015 (1.001-1.035) Urine Protein Negative (Negative) Urine Ketones Negative (Negative) Urine Blood Negative /uL (Negative) Urine Nitrite Negative (Negative) Urine Bilirubin Negative (Negative) Urine Urobilinogen Normal mg/dL (Negative) Urine Leukocyte Esterase Negative /uL (Negative) Urine RBC <1 /hpf (0 - 3) Urine Microscopic WBC 3 /HPF (0-3) Urine Squamous Epithelial Cells Few /hpf (<5) Urine Bacteria Few /hpf (None Seen) H Urine Glucose Normal mg/dL (Normal) Labs and/or images reviewed: Labs reviewed by me, Image(s) reviewed by me Assessment/Plan Assessment/Plan Impression: -acute GI bleed -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 Long discussion made with patient and son who was bedside. All questions answered. Total time spent with patient discussing and formulating plan of care: 35 minutes. This medical document was created using an electronic medical record system with [email or web address] dictation system. Although this document has been carefully reviewed, there may still be some phonetic and typographical errors. These areas are purely typographical due to imperfections of the software programs, and do not reflect any compromise in the patient's medical care. Plan discussed with: Patient, Other (RN) Date of Service: January 03, 2025 Billing Provider: WEI MORAN NP Common Visit Codes: [id number] INP/OBS CARE(HIGH) WEI OMRAN NP January 03, 2025 13:51
--- NOTE | 2025-01-03 21:25 | DVHPN2 ---
Progress Note - Dictate Date Seen: January 03, 2025 Medical Necessity Reason Pt with a Central, PICC or Fol: No Reason for carballo catheter: Strict I&O Subjective No new complaints Patient seen at bedside sitting up eating his dinner He is on supplemental oxygen EGD done over the weekend showed gastroduodenitis and a 2 cm hiatal hernia with no active bleeding EGD findings reviewed with patient and his family at bedside Nurse reports a large bowel movement today which was dark in color Patient would like to get a colonoscopy done while in the hospital He has not had any prior colonoscopy vital signs Vital Sign Date Time Temp Pulse Resp B/P (MAP) Pulse Ox O2 Delivery O2 Flow Rate FiO2 01/03/25 18:45 99 20 99 01/03/25 18:39 Nasal Cannula 2.0 01/03/25 18:39 28 01/03/25 16:46 98.4 131/46 (74) 98.4 Total Intake and Output 01/02/25 01/02/25 01/03/25 15:00 23:00 07:00 Intake Total 250 ml 850 ml 240 ml Output Total 1250 ml 300 ml Balance 250 ml -400 ml -60 ml medications Current Medications Medications Dose Ordered Sig/Milad Route Start Time Stop Time Status Last Admin Dose Admin Terazosin HCl 10 mg HS PO 12/29/24 22:00 01/02/25 22:47 10 MG Sodium Chloride 10 ml Q8HR IV 12/29/24 22:00 01/03/25 14:00 10 ML Acetaminophen/ Hydrocodone Bitart 1 tab Q4HP PRN PO 12/29/24 16:00 Ondansetron HCl 4 mg Q4HP PRN IV 12/29/24 16:00 Docusate Sodium 100 mg BIDPRN PRN PO 12/29/24 16:00 01/03/25 09:13 100 MG Acetaminophen 650 mg Q6HP PRN PO 12/29/24 16:00 Nitroglycerin 0.4 mg Q5MINP PRN SL 12/29/24 16:00 Morphine Sulfate 2 mg Q30M PRN IV 12/29/24 16:00 Furosemide 40 mg DAILY IV 12/31/24 10:00 01/02/25 10:06 40 MG Albuterol 2.5 mg Q6HWA NEB 12/30/24 18:00 01/03/25 18:39 2.5 MG Ipratropium [place] 0.5 mg Q6HWA NEB 12/30/24 18:00 01/03/25 18:39 0.5 MG Azithromycin 250 ml @ 125 mls/hr DAILY IV 12/31/24 10:00 01/03/25 09:14 125 MLS/HR Nicotine 1 patch DAILY TD 12/31/24 10:00 01/03/25 09:13 1 PATCH Pantoprazole Sodium 40 mg BID IV 12/31/24 22:00 01/03/25 10:38 40 MG Sucralfate 1 gm TID@0600,1130,2200 GT 12/31/24 11:30 01/03/25 12:00 1 GM objective General Appearance: Alert, Cooperative, No acute distress HEENT: Atraumatic, PERRLA, EOMI, Mucous membr. moist/pink Neck: Carotid [place], Enlarged Thyroid, JVD, Lymphadenopathy, Rigidity, S upple Lungs: Clear to auscultation, Normal air movement Cardiovascular: Regular rate, Normal S1, Normal S2 Abdomen: Normal bowel sounds, Soft, No tenderness;Obese Neuro: Cranial nerves 3-12 NL Skin: Dry, Intact Psych/Mental Status: Mental status NL laboratory and microbiology Laboratory Tests 01/03/25 05:51 01/01/25 04:46 Test 01/01/25 04:46 Range/Units Serum Glucose 131 H 74-106 mg/dL Problems(with codes): (1) Generalized weakness (2) Anemia requiring transfusions (3) COPD exacerbation (4) Type 2 diabetes mellitus with diabetic nephropathy (5) CKD (chronic kidney disease) stage 3, GFR 30-59 ml/min (6) Diabetic nephropathy (7) Shortness of breath Prognosis Plan Change to clear liquid diet I will give him a bowel prep on 01/04/2025 and schedule colonoscopy on 01/05/2025 Hold blood thinners for now Continue Protonix and Carafate I will follow up patient with you Dietary Evaluation Review Comments: 1. Currently NPO for EGD, previously on CHO 45 gm diet; insufficient, would increase to CHO 60 gm diet for adequate caloric intake 2. Timely diet advancement as medically able 3. Monitor weight trends Expected Outcomes/Goals: Diet progression. Plan discussed with: Patient, Son, Other (Nurse and family at bedside) CC Plasma Assessment Blood Product Administration S: [id number] CHANTAL BROOKS MD January 03, 2025 21:25
[2025-01-04] VITALS (16 sets, daily range): BP systolic 105–146; BP diastolic 36–51; PULSE 80–105; RESP 14–20; TEMP 97.7–98.3; O2SAT 89–100
[2025-01-04 12:21] LABS: Basophils # (auto) 0 10 ^3/uL (0-0.2); Basophils % (auto) 0.5 % (0.0-2.0); Eosinophils # (auto) 0.4 10 ^3/uL (0-0.8); Eosinophils % (auto) 6.2 % (0.0-7.0); Hematocrit 23.6 % (41.0-53.0); Hemoglobin 7.8 g/dL (13.5-17.5); Lymphocytes # (auto) 0.6 10 ^3/uL (0.4-5.4); Lymphocytes % (auto) 9.4 % (10.0-50.0); Mean Corpuscular Hemoglobin 28.4 pg (28.0-32.0); Mean Corpuscular Hgb Conc. 32.9 g/dL (32.0-36.0); Mean Corpuscular Volume 86.1 fL (80.0-100.0); Monocytes # (auto) 0.7 10 ^3/uL (0-1.3); Monocytes % (auto) 10.3 % (0.0-12.0); Neutrophils # (auto) 5.1 10 ^3/uL (1.6-8.6); Neutrophils % (auto) 73.6 % (37.0-80.0); Nucleated Red Blood Cells % 0.1 %; Platelet Count (auto) 310 10^3/uL (140-450); Red Blood Cells 2.75 10^6/uL (4.5-5.90); White Blood Cell 6.9 10^3/uL (4.4-10.8)
--- NOTE | 2025-01-04 13:16 | DVHPN2 ---
Subjective Patient denies any symptoms. Reviewed: Care Plan, H&P, Labs, Medications, Previous Orders, Radiology Changes from previous H/P or p: No Changes General: Per HPI Eyes: No Pain, No Vision change, No Conjunctivae inflammation, No Eyelid inflammation, No Other, No Redness ENT: No Ear pain, No Ear discharge, No Nose pain, No Nose discharge, No Nose congestion, No Mouth pain, No Mouth swelling, No Throat pain, No Throat swelling, No Other Cardiovascular: No Chest Pain, No Palpitations, No Orthopnea, No Paroxysmal Noc. Dyspnea, No Edema, No Lt Headedness, No Other Respiratory: Cough; No Dry; Shortness of breath; No SOB with excertion, No Wheezing, No Hemoptysis, No Pleuritic Pain, No Sputum, No Other Gastrointestinal: No Nausea, No Vomiting, No Abdominal Pain, No Diarrhea, No Constipation, No Melena, No Hematochezia, No Other Genitourinary: No Dysuria, No Frequency, No Incontinence, No Hematuria, No Retention, No Other Musculoskeletal: other (Bilateral lower extremity swelling); No neck pain, No shoulder pain, No arm pain, No back pain, No hand pain, No leg pain, No foot pain Skin: No Rash, No Lesions, No Jaundice, No Bruising, No Other Objective Vitals Vital Signs Date Time Temp Pulse Resp B/P (MAP) Pulse Ox O2 Delivery O2 Flow Rate FiO2 01/04/25 12:29 95 14 100 01/04/25 09:33 113/45 01/04/25 09:00 97.9 97.9 01/04/25 08:11 Nasal Cannula* 2 28 Intake/Output Intake and Output 01/04/25 07:00 Intake Total 2550 ml Output Total 600 ml Balance 1950 ml Intake Oral 2300 ml IV Total 250 ml Output Urine Total 600 ml # Voids 3 # Bowel Movements 1 General Appearance: Alert, Oriented X3, Cooperative, No acute distress HEENT: Atraumatic, PERRLA, EOMI, Mucous membr. moist/pink Neck: Carotid Bruits [place], Enlarged Thyroid, JVD, Lymphadenopathy, Rigidity, S upple Lungs: Clear to auscultation, Normal air movement Cardiovascular: Regular rate, Normal S1, Normal S2 Abdomen: Normal bowel sounds, Soft, No tenderness Neuro: Cranial nerves 3-12 NL Skin: Dry, Intact Psych/Mental Status: Mental status NL Medications Current Medications Medications Dose Ordered Sig/Milad Route Start Time Stop Time Status Last Admin Dose Admin Terazosin HCl 10 mg HS PO 12/29/24 22:00 01/04/25 00:00 10 MG Sodium Chloride 10 ml Q8HR IV 12/29/24 22:00 01/04/25 05:57 10 ML Acetaminophen/ Hydrocodone Bitart 1 tab Q4HP PRN PO 12/29/24 16:00 Ondansetron HCl 4 mg Q4HP PRN IV 12/29/24 16:00 Docusate Sodium 100 mg BIDPRN PRN PO 12/29/24 16:00 01/03/25 09:13 100 MG Acetaminophen 650 mg Q6HP PRN PO 12/29/24 16:00 Nitroglycerin 0.4 mg Q5MINP PRN SL 12/29/24 16:00 Morphine Sulfate 2 mg Q30M PRN IV 12/29/24 16:00 Furosemide 40 mg DAILY IV 12/31/24 10:00 01/04/25 09:33 40 MG Albuterol 2.5 mg Q6HWA [facility] 12/30/24 18:00 01/04/25 12:21 2.5 MG Ipratropium [place] 0.5 mg Q6HWA NEB 12/30/24 18:00 01/04/25 12:21 0.5 MG Azithromycin 250 ml @ 125 mls/hr DAILY IV 12/31/24 10:00 01/04/25 09:44 125 MLS/HR Nicotine 1 patch DAILY TD 12/31/24 10:00 01/04/25 09:33 1 PATCH Pantoprazole Sodium 40 mg BID IV 12/31/24 22:00 01/04/25 09:33 40 MG Sucralfate 1 gm TID@0600,1130,2200 GT 12/31/24 11:30 01/04/25 11:44 1 GM Laboratory Results Laboratory Tests 01/01/25 04:46 01/04/25 11:48 Urinalysis Test 12/29/24 17:25 Urine Color Light-yellow (Yellow) Urine Clarity Clear (Clear) Urine pH 5.5 (5.0-9.0) Urine Specific [place] 1.015 (1.001-1.035) Urine Protein Negative (Negative) Urine Ketones Negative (Negative) Urine Blood Negative /uL (Negative) Urine Nitrite Negative (Negative) Urine Bilirubin Negative (Negative) Urine Urobilinogen Normal mg/dL (Negative) Urine Leukocyte Esterase Negative /uL (Negative) Urine RBC <1 /hpf (0 - 3) Urine Microscopic WBC 3 /HPF (0-3) Urine Squamous Epithelial Cells Few /hpf (<5) Urine Bacteria Few /hpf (None Seen) H Urine Glucose Normal mg/dL (Normal) Labs and/or images reviewed: Labs reviewed by me, Image(s) reviewed by me Assessment/Plan Assessment/Plan Impression: -acute GI bleed -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 Patient receiving bowel prep today if with plans for colonoscopy tomorrow. -FOBT positive -GI consultation: Recommendations reviewed -O2 supplementation to keep saturation greater than 92% -continue PPI and Carafate -smoking cessation education -hold all blood thinners, antiplatelet therapy -further course of management per findings of colonoscopy with possible discharge if cleared by GI. Total time spent with patient discussing and formulating plan of care: 35 minutes. This medical document was created using an electronic medical record system with [employer] dictation system. Although this document has been carefully reviewed, there may still be some phonetic and typographical errors. These areas are purely typographical due to imperfections of the software programs, and do not reflect any compromise in the patient's medical care. Plan discussed with: Patient, Other (RN) Date of Service: January 04, 2025 Billing Provider: WEI MORAN NP Common Visit Codes: [id number] INP/OBS CARE(HIGH) WEI MORAN NP January 04, 2025 13:16
[2025-01-04] MEDS: GOLYTELY 4L KIT PO ONE (13:44)
--- NOTE | 2025-01-04 22:37 | DVHPN2 ---
Progress Note - Dictate Date Seen: January 04, 2025 Medical Necessity Reason Pt with a Central, PICC or Fol: No Reason for carballo catheter: Strict I&O Subjective No new complaints Patient seen at bedside sitting up Drinking is bowel prep no active GI bleeding reported today vital signs Vital Sign Date Time Temp Pulse Resp B/P (MAP) Pulse Ox O2 Delivery O2 Flow Rate FiO2 01/04/25 21:54 132/54 01/04/25 18:31 95 16 100 01/04/25 18:20 Nasal Cannula 3.0 01/04/25 18:20 32 01/04/25 17:00 97.7 97.7 Total Intake and Output 01/03/25 01/03/25 01/04/25 15:00 23:00 07:00 Intake Total 250 ml 1500 ml 800 ml Output Total 600 ml Balance 250 ml 1500 ml 200 ml medications Current Medications Medications Dose Ordered Sig/Milad Route Start Time Stop Time Status Last Admin Dose Admin Terazosin HCl 10 mg HS PO 12/29/24 22:00 01/04/25 21:54 10 MG Sodium Chloride 10 ml Q8HR IV 12/29/24 22:00 01/04/25 21:26 10 ML Acetaminophen/ Hydrocodone Bitart 1 tab Q4HP PRN PO 12/29/24 16:00 Ondansetron HCl 4 mg Q4HP PRN IV 12/29/24 16:00 Docusate Sodium 100 mg BIDPRN PRN PO 12/29/24 16:00 01/03/25 09:13 100 MG Acetaminophen 650 mg Q6HP PRN PO 12/29/24 16:00 Nitroglycerin 0.4 mg Q5MINP PRN SL 12/29/24 16:00 Morphine Sulfate 2 mg Q30M PRN IV 12/29/24 16:00 Furosemide 40 mg DAILY IV 12/31/24 10:00 01/04/25 09:33 40 MG Albuterol 2.5 mg Q6HWA NEB 12/30/24 18:00 01/04/25 18:20 2.5 MG Ipratropium [place] 0.5 mg Q6HWA NEB 12/30/24 18:00 01/04/25 18:20 0.5 MG Azithromycin 250 ml @ 125 mls/hr DAILY IV 12/31/24 10:00 01/04/25 09:44 125 MLS/HR Nicotine 1 patch DAILY TD 12/31/24 10:00 01/04/25 09:33 1 PATCH Pantoprazole Sodium 40 mg BID IV 12/31/24 22:00 01/04/25 21:25 40 MG Sucralfate 1 gm TID@0600,1130,2200 GT 12/31/24 11:30 01/04/25 21:26 1 GM objective General Appearance: Alert, Cooperative, No acute distress HEENT: Atraumatic, PERRLA, EOMI, Mucous membr. moist/pink Neck: Carotid Bruits [place], Enlarged Thyroid, JVD, Lymphadenopathy, Rigidity, S upple Lungs: Clear to auscultation, Normal air movement Cardiovascular: Regular rate, Normal S1, Normal S2 Abdomen: Normal bowel sounds, Soft, No tenderness;Obese Neuro: Cranial nerves 3-12 NL Skin: Dry, Intact Psych/Mental Status: Mental status NL laboratory and microbiology Laboratory Tests 01/04/25 11:48 01/01/25 04:46 Test 01/01/25 04:46 Range/Units Serum Glucose 131 H 74-106 mg/dL Problems(with codes): (1) Type 2 diabetes mellitus with diabetic nephropathy (2) COPD exacerbation (3) Generalized weakness (4) Anemia requiring transfusions (5) CKD (chronic kidney disease) stage 3, GFR 30-59 ml/min (6) Diabetic nephropathy Prognosis Plan Continue bowel prep Patient is scheduled for colonoscopy on 01/05/2025 at noon time Further recommendations after the above Continue supportive care Dietary Evaluation Review Comments: 1. Currently NPO for EGD, previously on CHO 45 gm diet; insufficient, would increase to CHO 60 gm diet for adequate caloric intake 2. Timely diet advancement as medically able 3. Monitor weight trends Expected Outcomes/Goals: Diet progression. Plan discussed with: Patient, Son CC Plasma Assessment Blood Product Administration S: [id number] CHANTAL BROOKS MD January 04, 2025 22:37
[2025-01-05] VITALS (15 sets, daily range): BP systolic 103–146; BP diastolic 42–74; PULSE 87–119; RESP 12–20; TEMP 37.3; O2SAT 92–100
[2025-01-05] MEDS: GOLYTELY 4L KIT PO ONE (05:19)
[2025-01-05] MEDS: MAGNESIUM CITRATE SOLUTION 300 ML BTL PO ONE (05:19)
[2025-01-05 06:40] LABS: Basophils # (auto) 0.1 10 ^3/uL (0-0.2); Hemoglobin 7.8 g/dL (13.5-17.5); Lymphocytes # (auto) 0.4 10 ^3/uL (0.4-5.4); Monocytes # (auto) 0.7 10 ^3/uL (0-1.3); Neutrophils # (auto) 5.6 10 ^3/uL (1.6-8.6); White Blood Cell 7.2 10^3/uL (4.4-10.8)
[2025-01-05 06:42] LABS: Eosinophils # (auto) 0.5 10 ^3/uL (0-0.8); Eosinophils % (auto) 6.7 % (0.0-7.0); Hematocrit 23.8 % (41.0-53.0); Lymphocytes % (auto) 6.1 % (10.0-50.0); Mean Corpuscular Hemoglobin 28.2 pg (28.0-32.0); Mean Corpuscular Hgb Conc. 32.8 g/dL (32.0-36.0); Monocytes % (auto) 9.2 % (0.0-12.0); Platelet Count (auto) 344 10^3/uL (140-450); Red Blood Cells 2.77 10^6/uL (4.5-5.90); Red Cell Distribution Width 15.8 % (11.8-14.3)
[2025-01-05 06:54] LABS: Anion Gap 7 (5-15); Chloride 104 mmol/L (98-107); Sodium 144 mmol/L (136-145)
[2025-01-05 06:55] LABS: Calcium 8.9 mg/dL (8.7-10.4)
[2025-01-05 07:04] LABS: Carbon Dioxide 33 mmol/L (20-31); Potassium 3.5 mmol/L (3.5-5.1)
[2025-01-05 07:20] LABS: BUN/Creatinine Ratio 18.3 (10.0-20.0); Blood Urea Nitrogen 22 mg/dL (9-23); Glucose 144 mg/dL (74-106)
[2025-01-05] MEDS ORDERED: MORPHINE SULFATE 4 MG/ML SYR/VIAL IV PRN (12:30)
[2025-01-05] MEDS ORDERED: ACCU-CHEK COMFORT CURVE STRIP VI ONE (12:30)
[2025-01-05] MEDS ORDERED: HYDROmorphone HCL 2 MG/ML VL/or syr IV PRN ×2 (12:30)
[2025-01-05] MEDS ORDERED: METOCLOPRAMIDE HCL 5MG/ml INJ 2ml VIAL IV ONE (12:30)
[2025-01-05] MEDS ORDERED: fentaNYL CITRATE 100 MCG/2 ML VL ONE (12:42)
[2025-01-05] MEDS ORDERED: KETAMINE 50mg/ML 1ml syringe ONE (12:42)
[2025-01-05] MEDS ORDERED: PROPOFOL 10 MG/ML 20 ML IV ONE (12:43)
[2025-01-05] MEDS ORDERED: MIDAZOLAM HCL 2MG/2ML 2ml VIAL (1mg/ml) ONE (12:43)
[2025-01-05] MEDS ORDERED: SODIUM CHLORIDE LOCK 10 ML ONE (12:43)
[2025-01-05] MEDS ORDERED: LIDOCAINE 1% INJ PF 5ML AMP ONE (12:43)
[2025-01-05] MEDS ORDERED: ONDANSETRON HCL 4 MG/2 ML VIAL ONE (12:43)
[2025-01-05] MEDS ORDERED: DexAMETHasone SOD PHOS 10MG/1ML VIAL INJ ONE (12:54)
--- NOTE | 2025-01-05 13:37 | DVHOP2 ---
Operative Report DATE OF OPERATION: 01/05/25 PROCEDURE: Colonoscopy with hot snare polypectomy. PREOPERATIVE INDICATION: The patient is a 84 -year-old male undergoing colonoscopy for GI bleeding POSTOPERATIVE DIAGNOSES: 1. 1.5-2 cm benign-appearing proximal ascending colon polyp was seen and removed by hot snare polypectomy and the specimens were retrieved 2. There was a 1 cm benign-appearing hepatic flexure polyp that was seen and removed by hot snare polypectomy and the specimens were retrieved 3. There was an adjacent fold with some superficial inflammation from which biopsies were obtained to rule out any tubular adenoma 4. There were two less than 1 cm benign-appearing sigmoid polyps were seen and removed by hot snare polypectomy and the specimens were retrieved 5. Moderate scattered diverticular disease 6. 1+ internal hemorrhoids otherwise normal examination up to the cecum PROCEDURE PERFORMED BY: Chantal Chand M.D. SCOPE: Olympus videocolonoscope. ASA CLASS: 3 PREOPERATIVE MEDICATIONS: Mac sedation Dr. No PROCEDURE IN DETAIL: After obtaining an informed consent, the patient was placed on left lateral decubitus position. He was then sedated with the above medications. A rectal examination was performed that was normal. The colonoscope was then passed through the anus into the rectosigmoid and through the descending, transverse, and ascending colon up to the cecum with visualization of the appendiceal orifice, base of the cecum and the ileocecal valve. The colonoscope was then withdrawn. In the proximal ascending colon there was a 1.5-2 cm polyp This was removed by hot snare polypectomy and the specimen was retrieved There was a 1 cm polyp in the hepatic flexure that was removed by hot snare polypectomy and the specimens were retrieved Adjacent to that was a fold that had slight inflammatory changes from which biopsies were obtained to rule out any adenoma In the sigmoid colon there were two polyps less than 1 cm in size that were seen and removed by hot snare polypectomy and the specimens were retrieved Patient had moderate scattered diverticular disease more prominent in the left colon. On retroflexion and straight on view he had 1+ internal hemorrhoids The patient tolerated the procedure well without difficulty. WITHDRAWAL TIME: 15 minutes QUALITY OF THE PREP: [place] Bowel Prep score: 9. COMPLICATIONS : None SPECIMENS: Ascending colon polyp Hepatic flexure polyp Hepatic flexure fold biopsy Sigmoid polyps DISPOSITION: Transfer back to the floor Stable PLAN: 1. Repeat colonoscopy base on biopsy result likely in 2-3 years 2. Resume GI soft diet advance as tolerated 3. Recommend holding anticoagulation for 5-7 days 4. Outpatient follow up with me in 4-6 weeks to review results and discuss further management CHANTAL CHAND MD January 05, 2025 13:36
[2025-01-05] MEDS ORDERED: MORPHINE SULFATE INJ 2 MG/ml SYRG IV PRN (14:00)
[2025-01-05] MEDS ORDERED: SUCR1TAB31 OR (14:17)
[2025-01-05] MEDS ORDERED: PANT40TA2 PO (14:17)
--- NOTE | 2025-01-05 14:22 | DVHDS2 ---
Discharge Summary Date of Admission Dec 29, 2024 at 15:55 Date of Discharge: January 05, 2025 Admitting Diagnosis Anemia with blood transfusion Labs/Diagnostic Data: Laboratory Results Test 01/05/25 06:14 01/03/25 12:30 01/01/25 04:46 12/31/24 05:24 White Blood Count 7.2 10^3/uL (4.4-10.8) Red Blood Count 2.77 10^6/uL (4.5-5.90) Hemoglobin 7.8 g/dL (13.5-17.5) Hematocrit 23.8 % (41.0-53.0) Mean Corpuscular Volume 86.0 fL (80.0-100.0) Mean Corpuscular Hemoglobin 28.2 pg (28.0-32.0) Mean Corpuscular Hemoglobin Concent 32.8 g/dL (32.0-36.0) Red Cell Distribution Width 15.8 % (11.8-14.3) Platelet Count 344 10^3/uL (140-450) Mean Platelet Volume 7.5 fL (6.9-10.8) Neutrophils (%) (Auto) 77.0 % (37.0-80.0) Lymphocytes (%) (Auto) 6.1 % (10.0-50.0) Monocytes (%) (Auto) 9.2 % (0.0-12.0) Eosinophils (%) (Auto) 6.7 % (0.0-7.0) Basophils (%) (Auto) 1.0 % (0.0-2.0) Neutrophils # (Auto) 5.6 10 ^3/uL (1.6-8.6) Lymphocytes # (Auto) 0.4 10 ^3/uL (0.4-5.4) Monocytes # (Auto) 0.7 10 ^3/uL (0-1.3) Eosinophils # (Auto) 0.5 10 ^3/uL (0-0.8) Basophils # (Auto) 0.1 10 ^3/uL (0-0.2) Nucleated Red Blood Cells 0.0 % Sodium Level 144 mmol/L (136-145) Potassium Level 3.5 mmol/L (3.5-5.1) Chloride Level 104 mmol/L (98-107) Carbon Dioxide Level 33 mmol/L (20-31) Anion Gap 7 (5-15) Blood Urea Nitrogen 22 mg/dL (9-23) Creatinine 1.20 mg/dL (0.700-1.30) Glomerular Filtration Rate Calc 60 mL/min (>90) BUN/Creatinine Ratio 18.3 (10.0-20.0) Serum Glucose 144 mg/dL (74-106) Calcium Level 8.9 mg/dL (8.7-10.4) Stool Occult Blood Sample #3 Positive (Negative) Prothrombin Time 11.0 sec (9.3-11.8) Prothrombin Time INR 1.04 (0.9-1.15) Activated Partial Thromboplast Time 24.2 SEC (24.5-34.5) Vitamin B12 Level 3412 pg/mL (211-911) Folic Acid 17.92 ng/mL (>5.38) Test 12/30/24 17:58 12/30/24 10:55 12/30/24 07:12 12/29/24 17:25 Free Prostate Specific Antigen 0.13 ng/mL (N/A) Percent Free Prostate Specific Ag 18.6 % (.) Prostate Specific Antigen Total 0.7 ng/mL (0.0-4.0) POC Glucose 143 mg/dl (70-106) Hemoglobin A1c 5.6 % A1C (<5.7) Phosphorus Level 4.0 mg/dL (2.4-5.1) Iron Level 24 ug/dL (65-175) Total Iron Binding Capacity 375 ug/dL (250-425) Percent Iron Saturation 6.4 % (20-55) Total Bilirubin 0.3 mg/dL (0.2-1.0) Aspartate Amino Transferase (AST) 11 U/L (13-40) Alanine Aminotransferase (ALT) 16 U/L (7-40) Alkaline Phosphatase 78 U/L (46-116) Total Protein 6.1 g/dL (5.7-8.2) Albumin 4.0 g/dL (3.2-4.8) Vitamin D 25-Hydroxy 71.6 ng/mL (30.0-100) Free Thyroxine (T4) Calculated 0.84 ng/dL (0.89-1.76) Parathyroid Hormone (Intact) 93.5 pg/mL (18.4-80.1) Urine Color Light-yellow (Yellow) Urine Clarity Clear (Clear) Urine pH 5.5 (5.0-9.0) Urine Specific [place] 1.015 (1.001-1.035) Urine Protein Negative (Negative) Urine Ketones Negative (Negative) Urine Blood Negative /uL (Negative) Urine Nitrite Negative (Negative) Urine Bilirubin Negative (Negative) Urine Urobilinogen Normal mg/dL (Negative) Urine Leukocyte Esterase Negative /uL (Negative) Urine RBC <1 /hpf (0 - 3) Urine Microscopic WBC 3 /HPF (0-3) Urine Squamous Epithelial Cells Few /hpf (<5) Urine Bacteria Few /hpf (None Seen) Urine Glucose Normal mg/dL (Normal) Test 12/29/24 10:50 Magnesium Level 1.9 mg/dL (1.6-2.6) Troponin I High Sensitivity 32 ng/L (</=54) B-Type Natriuretic Peptide 85.03 pg/mL (0-100) Thyroid Stimulating Hormone (TSH) 0.54 uIU/mL (0.55-4.78) Other Laboratory Tests 01/05/25 06:14 Brief Hx & Hospital Course: History of Present Illness The patient is a 84-year-old male with past medical history of COPD, DM, and hypertension who presented to [facility] ED with complaint of shortness of breaths. Patient reports symptoms progressively get worse with bilateral leg swelling, nonproductive cough, weakness, increased work of breathing, getting worse today that prompted this visit. Patient was seen and evaluated in the ED, laboratory data shows WBC 11.5, hemoglobin 6.6, hematocrit 20.8, platelets 312, sodium 143, potassium 3.6, BUN 69, creatinine 1.75, glucose 153, BNP 83.03, troponin 32, TSH 0.54. Chest x-ray finding compatible bronchitis, hyper-aerated lungs suggestive of COPD, no lobar consolidation. Patient was given 2 units of PRBC. On my assessment, patient denied chest pain, palpitations, no headache, dizziness, no diaphoresis, currently on oxygen, no nausea, no vomiting, no fever, no chills. Patient was admitted further evaluation and medical management. Course of hospitalization: Patient was started Carafate, ppi. Discussion was made with the patient regarding his home medications, for which she was recently placed on Plavix for carotid artery disease, in addition to aspirin as well as the patient reporting taken Advil daily. Patient also smokes cigarettes, approximately half a pack a day. GI consultation was obtained, with the patient undergoing upper endoscopy without any findings of active bleeding. Patient's H&H was stable. FOBT was positive, with the patient undergoing colonoscopy today. Patient has had no active bleeding with H&H stable today. Patient will be discharged home and instructed to follow up with his PCP in 1-2 weeks. Patient is instructed to stop taking Plavix, continue aspirin 81 mg p.o. daily, and stop taking Advil [id number] for pain, in attempt to use Tylenol. Smoking cessation education was also provided, 10 minutes spent with the patient. Patient will be continued on both Protonix and Carafate at home. Discussion was also made with the patient's family who were bedside. All questions answered. Physical examination General: Alert and Oriented x3. No acute distress. Well-nourished. Eyes: EOMI. Anicteric. HENT: Moist mucous membranes. Lungs: Clear to auscultation bilaterally. No accessory muscle use. Cardiovascular: Regular rate and rhythm. No murmur. No JVD. Abdomen: Soft, non-tender and non-distended. No palpable masses. Extremities: No edema. Non-tender. Skin: No rashes or lesions. Warm. Neurologic: No focal neurological deficits. CN II-XII grossly intact, but not individually tested. Psychiatric: Cooperative. Appropriate mood and affect. Total time spent with patient discussing and formulating plan of care: 35 minutes. This medical document was created using an electronic medical record system with [employer] dictation system. Although this document has been carefully reviewed, there may still be some phonetic and typographical errors. These areas are purely typographical due to imperfections of the software programs, and do not reflect any compromise in the patient's medical care. 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 daily Recommend patient to stop taking Advil [id number] daily as he is currently taking. -O2 supplementation to keep saturation greater than 92% Carafate 1 g tablet a.c. and HS Protonix 40 mg p.o. b.i.d. times 30 days 36 Discharge Statement: "Patient was advised to return to the ER or call 911 if any headaches, dizziness, shortness of breath, chest pain, abdominal pain, bleeding, fevers, or worsening of medical condition. Patient was counseled about treatment plan, medications, possible side effects, patient�verbalized understanding. All questions were answered to the best of my ability. This discharge took greater then 30 minutes in planning, reviewing documentation, counseling the patient, and discussing with other team members." ASSESSMENT ASSESSMENT Assessment GI bleed Date of Service: January 05, 2025 Billing Provider: WEI MORAN NP Common Visit Codes: 80009-XGW/OBS DISCH DAY >30min WEI MORAN NP January 05, 2025 14:22
== END 2025-01-05 16:50 | disposition home or self-care (01) | DRG 380 ==
LOC: EDBD 09:07 → ER 09:07 → OVERFLOW 15:55 → TELE-WESTW 19:10
PROVIDERS: ADMIT Nurse Practitioner Acute Care; ATTEND Nurse Practitioner Acute Care
PROC: 30233N1 Transfusion of Nonautologous Red Blood Cells into Peripheral Vein, Percutaneous Approach (ICD-10-PCS; principal; 2024-12-29)
PROC: 0DJ08ZZ Inspection of Upper Intestinal Tract, Via Natural or Artificial Opening Endoscopic (ICD-10-PCS; 2025-01-01)
PROC: 0DBL8ZX Excision of Transverse Colon, Via Natural or Artificial Opening Endoscopic, Diagnostic (ICD-10-PCS; 2025-01-05)
PROC: 0DBK8ZZ Excision of Ascending Colon, Via Natural or Artificial Opening Endoscopic (ICD-10-PCS; 2025-01-05)
PROC: 0DBL8ZZ Excision of Transverse Colon, Via Natural or Artificial Opening Endoscopic (ICD-10-PCS; 2025-01-05)
PROC: 0DBN8ZZ Excision of Sigmoid Colon, Via Natural or Artificial Opening Endoscopic (ICD-10-PCS; 2025-01-05)
DX: K22.11 Ulcer of esophagus with bleeding (principal); I50.41 Acute combined systolic (congestive) and diastolic (congestive) heart failure; J96.21 Acute and chronic respiratory failure with hypoxia; J44.1 Chronic obstructive pulmonary disease with (acute) exacerbation; N17.9 Acute kidney failure, unspecified; I13.0 Hypertensive heart and chronic kidney disease with heart failure and stage 1 through stage 4 chronic kidney disease, or unspecified chronic kidney disease; D50.0 Iron deficiency anemia secondary to blood loss (chronic); K57.31 Diverticulosis of large intestine without perforation or abscess with bleeding; K26.4 Chronic or unspecified duodenal ulcer with hemorrhage; K29.01 Acute gastritis with bleeding; E11.22 Type 2 diabetes mellitus with diabetic chronic kidney disease; N18.32 Chronic kidney disease, stage 3b; I35.0 Nonrheumatic aortic (valve) stenosis; K64.8 Other hemorrhoids; F17.210 Nicotine dependence, cigarettes, uncomplicated; K44.9 Diaphragmatic hernia without obstruction or gangrene; K63.5 Polyp of colon; E66.01 Morbid (severe) obesity due to excess calories; E21.1 Secondary hyperparathyroidism, not elsewhere classified; Z88.0 Allergy status to penicillin; Z79.899 Other long term (current) drug therapy; Z71.6 Tobacco abuse counseling; Z80.8 Family history of malignant neoplasm of other organs or systems; Z85.46 Personal history of malignant neoplasm of prostate; Z79.82 Long term (current) use of aspirin; D51.0 Vitamin B12 deficiency anemia due to intrinsic factor deficiency; I65.29 Occlusion and stenosis of unspecified carotid artery
CPT/HCPCS: 36415; 43235; 45380; 45385; 71046; 71250; 74176; 76775; 80048; 80053; 81001; 82270; 82306; 82607; 82746; 82962; 83036; 83540; 83550; 83735; 83880; 83970; 84100; 84154; 84439; 84443; 84484; 85025; 85610; 85730; 86850; 86900; 86901; 86920; 93005; 93306; 93970; 94640; 97163; A4565; G0378; J1100; J1815; J2250; J2405; J2470; J2704